=== PATIENT | male | born 1950 | race Caucasian/White ===

== ENCOUNTER 2019-11-15 10:08 | Outpatient (CLI) | payer MEDICARE, OTHER, SELFPAY ==
--- NOTE | ~2019-11-15 | XR_ITS ---
EXAMINATION: HAND-GÓMEZ ARTHRITIS 3+VIEWS DATE: 11/15/2019 10:34 INDICATION: Right hand pain TECHNIQUE: Posteroanterior, lateral, and oblique views of the left and of the right hands as well as a ballcatchers view of both hands were obtained. COMPARISON: Left hand radiographs dated 11/09/2018 FINDINGS: Nondisplaced chronic nonunited fracture across the base of the left ulnar styloid process. Cystic guillermo nge within sclerotic margins in the underlying distal ulna. Alignment is normal at the bilateral hand s and wrists. No other fractures identified. Mild polyarticular osteoarthritis characterized by nonun iform joint space narrowing and small marginal osteophytes with relatively symmetric distribution at the radial aspect of the bilateral carpi, at multiple metacarpophalangeal joints with radial and righ t-sided predominance and at multiple interphalangeal joints again with distal predominance. Additiona l likely lucency likely related to degenerative subchondral cyst with thin sclerotic margins and with out cortical erosion at the radial base of the right second middle phalanx. No erosions to suggest an inflammatory arthritis. 4 mm thin wire-like metallic foreign body in the soft tissues at the palmar/ radial aspect of the left second proximal phalanx. IMPRESSION: 1. Mild polyarticular osteoarthritis with typical distribution at the bilateral hands. 2. Unchanged nondisplaced chronic nonunited fracture of the left ulnar styloid process with underlyin g degenerative cystic change centered near the ulnar fovea which may be related to associated injury to the retracted fibrocartilage complex. Reviewed, dictated and finalized at location B. IMPRESSION: 1. Mild polyarticular osteoarthritis with typical distribution at the bilateral hands. 2. Unchanged nondisplaced chronic nonunited fracture of the left ulnar styloid process with underlying degenerative cystic change centered near the ulnar fove a which may be related to associated injury to the retracted fibrocartilage com plex.
== END 2019-11-15 10:09 | disposition home or self-care (01) ==
PROVIDERS: PCP Family Medicine; Visit Provider Physician Assistant Medical
DX: M19.042 Primary osteoarthritis, left hand (principal); M19.041 Primary osteoarthritis, right hand; S52.615A Nondisplaced fracture of left ulna styloid process, initial encounter for closed fracture; X58.XXXA Exposure to other specified factors, initial encounter
CPT/HCPCS: 73130

== ENCOUNTER 2020-02-10 08:35 | Outpatient (CLI) | payer MEDICARE, OTHER, SELFPAY ==
--- NOTE | ~2020-02-10 | NM_ITS ---
EXAMINATION: NM saturnino stress w perfusion DATE: 02/10/2020 14:08 INDICATION: Chest pain. TECHNIQUE: Rest images were obtained following intravenous administration of 9.6 mCi Tc99m tetrofosmi n (Myoview). The patient was infused intravenously with Lexiscan (regadenoson). Then, 28.3 mCi Tc99m tetrofosmin (Myoview) was administered intravenously, and stress images were obtained. Data was recon structed into short axis and horizontal and vertical long axis SPECT images. Gated SPECT images were also obtained. COMPARISON: None. FINDINGS: There is no definite reversible or fixed perfusion abnormality to suggest ischemia or infar ction. There is no segmental wall motion abnormality. Left ventricular ejection fraction measures 6 8%. IMPRESSION: 1. No definite ischemia or infarct. 2. Normal left ventricular ejection fraction measuring 68%. Reviewed, dictated and finalized at location A. OR INTERACTION DESIGNER
--- NOTE | 2020-02-10 08:56 | EST_ITS ---
Patient Info Name: Carlos Mckay Age: 69 years : 1950 Gender: Male Ht: 67 in Wt: 270 lbs BSA: 2.47 m2 Exam Date: 02/10/2020 10:56 AM Exam Location: [facility] Stress Patient Status: Outpatient Admit Date: 02/10/2020 Staff Ordering Physician: Vicki Frederick Attending Provider: Vicki Frederick Exercise Technologist: Chantel Kaba RDCS Exercise Physician: James Love DO Exam Type: CA stress saturnino w NM Study Info Indications R07.9 - Chest pain, unspecified A regadenoson stress test was performed. Summary 1. 1. Negative lexiscan stress test for ischemic ST changes by ECG criteria. 2. 2. Baseline hypertension. 3. 3. Nuclear scan to follow and will be reported separately. Please correlate with it. 4. 4. Patient informed of the above results. Protocol: Lexiscan Stress ECG Details Stage: REST Duration (min): 7 min : 43 sec HR (bpm): 77 SBP (mmHg): 161 DBP (mmHg): 79 Stage: REST Duration (min): 25 min : 33 sec HR (bpm): 79 SBP (mmHg): 161 DBP (mmHg): 79 Stage: STAGE 1 Duration (min): 1 min : 0 sec HR (bpm): 81 SBP (mmHg): 161 DBP (mmHg): 79 Stage: RECOVERY Duration (min): 1 min : 0 sec HR (bpm): 98 SBP (mmHg): 120 DBP (mmHg): 62 Stage: RECOVERY Duration (min): 2 min : 0 sec HR (bpm): 95 SBP (mmHg): 120 DBP (mmHg): 62 Stage: RECOVERY Duration (min): 3 min : 0 sec HR (bpm): 82 SBP (mmHg): 162 DBP (mmHg): 74 Stage: RECOVERY Duration (min): 3 min : 3 sec HR (bpm): 82 SBP (mmHg): 162 DBP (mmHg): 74 Rest HR: 79 bpm Peak HR: 98 bpm Rest Sys BP: 161 mmHg Peak Sys BP: 162 mmHg Max Pred HR: 153 bpm % Max Pred HR: 64 % Target HR: 130 bpm Max RPP: 15,876 bpm*mmHg Termination Reason: Completed protocol Cardiac Symptoms: Abdominal discomfort Total Time: 1 min : 0 sec Rest Keyes BP: 79 mmHg Peak Keyes BP: 74 mmHg Total Dose: 0.4 mg Resting ECG Sinus rhythm. Stress ECG No ST changes. Arrhythmias None. Report Signatures
--- NOTE | 2020-02-10 08:56 | ECHO_ITS ---
Patient Info Name: Carlos Mckay Age: 69 years : 1950 Gender: Male Ht: 67 in Wt: 270 lbs BSA: 2.47 m2 HR: 80 bpm BP: 179 / 94 mmHg Heart Rhythm: Sinus Rhythm Technical Quality: Good Exam Date: 02/10/2020 9:15 AM Exam Location: [facility] Patient Status: Outpatient Admit Date: 02/10/2020 Staff Ordering Physician: Vicki Frederick PAC Cold Rolling Supervisor: Romaine Poole RDCS Attending Provider: Vicki Frederick PAC Referring Physician: Yoly JONES; Exam Type: CA echo doppler color flow Study Info Indications R07.9 - Chest pain, unspecified Complete two-dimensional, color flow and Doppler transthoracic echocardiogram is performed. History/Risk Factors Chest pain and HTN. Summary 1. Complete two-dimensional, color flow and Doppler transthoracic echocardiogram is performed. 2. Left ventricular chamber dimension is normal. 3. Left ventricular systolic function is normal, estimated at 60-65%. 4. There is mildly increased left ventricular wall thickness. 5. The left ventricular diastolic function is grade I diastolic dysfunction. 6. E/e' 14 is mildly elevated. 7. No pulmonary hypertension, estimated pulmonary arterial systolic pressure is 33 mmHg. Left Ventricle E/e' 14 is mildly elevated. Left ventricular chamber dimension is normal. Left ventricular systolic function is normal, estimated at 60-65%. There is mildly increased left ventricular wall thickness. The left ventricular diastolic function is grade I diastolic dysfunction. Right Ventricle Right ventricular chamber dimension is normal. Right ventricular systolic function is normal. Left Atria Left atrial chamber dimension is normal. Right Atria Right atrial chamber dimension is normal. Aortic Valve The aortic valve is trileaflet. There is no aortic valve stenosis. There is no aortic valve regurgitation. Pulmonic Valve There is no pulmonic regurgitation. Mitral Valve There is no mitral valve stenosis. There is no mitral valve regurgitation. Tricuspid Valve There is no tricuspid valve regurgitation. No pulmonary hypertension, estimated pulmonary arterial systolic pressure is 33 mmHg. Pericardium/Pleural There is no pericardial effusion. Inferior Vena Cava Normal inferior vena cava with >50% collapse upon inspiration consistent with normal right atrial pressure, 5 mmHg. Aorta The aortic root size at the sinus of Valsalva is normal. Left Ventricular Outflow Tract Name Value Normal LVOT 2D LVOT Diameter 2.0 cm LVOT Doppler LVOT Peak Gradient 4 mmHg LVOT Mean Gradient 2 mmHg LVOT VTI 22 cm LVOT VTI/AV VTI Ratio 0.9 LVOT Stroke Volume 73 ml LVOT CO 5.0 l/min LVOT CI 2.0 l/min/m2 Mitral Valve Name Value Normal
== END 2020-02-10 08:36 | disposition home or self-care (01) ==
PROVIDERS: PCP Family Medicine; Visit Provider Physician Assistant Medical
DX: R07.89 Other chest pain (principal); R06.02 Shortness of breath; I51.9 Heart disease, unspecified
CPT/HCPCS: 78452; 93017; 93306; A9502; J2785

== ENCOUNTER 2020-03-04 06:35 | Emergency (ER) | payer MEDICARE, OTHER, SELFPAY ==
--- NOTE | ~2020-03-04 | CT_ITS ---
EXAMINATION: CT abdomen pelvis w con INDICATION: Right upper quadrant pain TECHNIQUE: Computed tomographic images of the abdomen and pelvis were obtained after the administrati on of 100 cc of Omnipaque 350 intravenous contrast. The dose-length product (DLP) was 1447.65 mGy-cm. Automated exposure control and iterative reconstruction technique were employed. COMPARISON: 02/11/2009 FINDINGS: Minimal dependent atelectasis is present in the lung bases. The heart size is normal. There is an 8 mm cyst in liver segment I. The spleen, pancreas, gallbladder, and adrenal glands are normal . Punctate calcifications of the head of the pancreas are consistent with chronic pancreatitis. The k idneys are unremarkable. There is calcified atherosclerosis of the aorta and many of the other arteri es. No pathologically enlarged abdominal or pelvic lymph nodes are identified. There is no free intra peritoneal gas or evidence of bowel obstruction. The appendix is normal. There is a small volume of p elvic ascites. There is mild lumbar spondylosis. There is a small fat-containing umbilical hernia. IMPRESSION: 1. No CT correlate for the patient's symptoms. Small volume of pelvic ascites of unclear etiology. Reviewed, dictated and finalized at location A. TY DIRECTOR OF FINANCE IMPRESSION: 1. No CT correlate for the patient's symptoms. Small volume of pelvic ascites o f unclear etiology.
[2020-03-04 06:41] VITALS: BP 162/87; PULSE 83; RESP 18; TEMP 36.3; O2SAT 100
[2020-03-04 06:55] LABS: Basophils Absolute Auto 0.1 K/mm3 (0.0-0.1); Basophils Percent Auto 0.9 % (0.2-1.2); Eosinophils Absolute Auto 0.2 K/mm3 (0-0.3); Hematocrit 43.2 % (42.0-52.0); Hemoglobin 14.5 g/dL (14.0-18.0); Immature Granulocyte Absolute 0.04 K/mm3 (0.00-0.031); Immature Granulocyte Percent A 0.5 % (0-0.5); Lymphocytes Absolute Auto 1.18 K/mm3 (0.9-3.2); Lymphocytes Percent Auto 15.8 % (18.3-44.2); Mean Corpuscular HGB Conc 33.6 g/dl (32-36); Mean Corpuscular Hemoglobin 27.7 pg (26-34); Mean Corpuscular Volume 82.4 fl (80-100); Mean Platelet Volume 10.6 fl (7.4-10.4); Monocytes Absolute Auto 0.6 K/mm3 (0.1-0.6); Monocytes Percent Auto 8.1 % (2.6-8.5); Neutrophils Absolute Auto 5.3 K/mm3 (1.3-6.7); Neutrophils Percent Auto 71.7 % (45.5-73.1); Platelet Count Result 266 k/mm3 (150-375); Red Blood Count 5.24 M/mm3 (4.6-6.20); Red Cell Distribution Width 12.1 % (11.5-14.5); White Blood Count 7.5 K/mm3 (4.5-10.0)
[2020-03-04 07:06] LABS: Alanine Aminotransferase 34 U/L (4-50); Albumin Level 4.2 g/dL (3.5-5.1); Alkaline Phosphatase 65 U/L (38-126); Anion Gap 7 mmol/L (8-16); Aspartate Amino Transferase 31 U/L (17-59); Bilirubin,Total 0.7 mg/dL (0.2-1.3); Blood Urea Nitrogen 22 mg/dL (9-20); Calcium 9.4 mg/dL (8.4-10.2); Carbon Dioxide 30 mmol/L (22-30); Chloride 99 mmol/L (98-107); Estimated CRCL calculation 63 ml/min; Estimated Glomerular Filt Rate 55; Glucose 207 mg/dL (75-110); Lipase 263 U/L (23-300); Potassium 4.4 mmol/L (3.4-5.0); Sodium 136 mmol/L (137-145)
--- NOTE | 2020-03-04 07:29 | ED.ABDPAIN ---
HPI - Abdominal Pain General Chief Complaint: Abdominal Pain Stated Complaint: Gallbladder attack Time Seen by Provider: 03/04/20 07:20 Source: patient Mode of arrival: ambulatory Limitations: no limitations History of Present Illness HPI narrative: 69 years old white male presents with diffuse abdominal pain mainly right upper quadrant, get worse after eating started 5 days ago. Patient denies any fever, chills, vomiting, diarrhea, constipation, history of abdominal surgery, exposure to anybody known having COVID-19. History of hypertension, diabetes patient on baby aspirin Patient reports taking 80 mg of Protonix daily in the last few days to improve his feeling. Also he been taking Pepcid at the same time. Related Data Home Medications Medication Instructions Recorded Confirmed aspirin 81 mg tablet,delayed 81 mg PO DAILY 04/18/19 01/15/20 release doxycycline hyclate 100 mg capsule 100 mg PO BID cap 04/18/19 01/15/20 gefitinib 250 mg tablet 250 mg PO DAILY 04/18/19 01/15/20 levothyroxine 300 mcg tablet 300 mcg PO DAILY 04/18/19 01/15/20 lisinopril 10 mg tablet 10 mg PO DAILY 02/25/20 Allergies Allergy/AdvReac Type Severity Reaction Status Date / Time No Known Allergies Allergy Unknown Verified 02/25/20 08:41 Review of Systems Review of Systems: Narrative: CONSTITUTIONAL: Denies fever, chills, or sweats. EYES: Denies visual changes, redness, or discharge. ENT: Denies rhinorrhea, congestion, sore throat, or otalgia. CARDIOVASCULAR: Denies chest pain, palpitations, or edema. RESPIRATORY: Denies cough or dyspnea. GASTROINTESTINAL: Denies abdominal pain, nausea, vomiting, or diarrhea. GENITOURINARY: Denies dysuria or hematuria. SKIN: Denies rash or itching. MUSCULOSKELETAL: Denies back pain, joint pain, or myalgia. NEUROLOGIC: Denies headache, numbness, or weakness. PSYCHIATRIC: Denies anxiety or depression. [facility] Past Medical History Medical History Morbid obesity Family History Family History Mother Carcinoma of colon Family history of diabetes mellitus in first degree relative Family history of coronary artery disease Grandparent Diabetes mellitus Social History Social History Smoking status: Former smoker (quit 30 years ago after 15 pack years) Alcohol intake: never Exam Narrative: Exam Narrative: General appearance: Well-developed, well-nourished Skin: Normal color Head: Normocephalic, nontraumatic Eyes: Clear conjunctiva ENT: Oropharynx normal, ears normal, nose normal Neck: Supple, nontender Chest and respiratory: Airway patent, no respiratory distress, no accessory muscle use Heart: Regular rate/rhythm Abdomen: Soft, mild tenderness right upper quadrant, no guarding or rebound, no organomegaly, quiet bowel sounds Vascular: Normal peripheral pulses, normal capillary refill. Musculoskeletal: Normal range of motion, nontender back Neurologic: Alert and oriented ?3, MAGNETIC TESTER is normal as tested, no gross motor deficit Course Course Emergency Course: Stable Vital Signs Vital signs: Vital Signs Temperature 36.3 C L 03/04/20 06:41 Pulse Rate 83 03/04/20 06:41 Respiratory Rate 18 03/04/20 06:41 Blood Pressure 162/87 H 03/04/20 06:41 Pulse Oximetry 100 03/04/20 06:41 Temperature 36.3 C L 03/04/20 06:41 Pulse Rate 76 03/04/20 08:10 Respiratory Rate 18 03/04/20 06:41 Blood Pressure 149/87 H 03/04/20 08:10 Pulse Oximetry 99 03/04/20 08:10 MDM - Abdominal Pain MDM Narrative Medical decision making narrative: Patient presents w
[2020-03-04 08:10] VITALS: BP 149/87; PULSE 76; O2SAT 99
[2020-03-04] MEDS: SODIUM CHLORIDE 0.9% IV 1,000 ML 999 ML IV CONT (08:12)
[2020-03-04] MEDS: METOCLOPRAMIDE HCL INJ 10 MG/2 ML VIAL IV PUSH (09:32)
== END 2020-03-04 09:40 | disposition home or self-care (01) ==
PROVIDERS: Emergency Medicine; Emergency Provider Emergency Medicine; PCP Family Medicine
DX: R10.11 Right upper quadrant pain (principal); E66.01 Morbid (severe) obesity due to excess calories; Z68.41 Body mass index [BMI] 40.0-44.9, adult; Z87.891 Personal history of nicotine dependence
CPT/HCPCS: 36415; 74177; 80053; 83690; 85025; 96361; 96374; 99284; J2765; J7030; Q9967

== ENCOUNTER 2020-03-10 00:23 | Observation (INO) | payer MEDICARE, OTHER, SELFPAY ==
[2020-03-10] VITALS (31 sets, daily range): BP systolic 100–149; BP diastolic 57–85; PULSE 66–91; RESP 12–23; TEMP 35.8–36.6; O2SAT 96–100; BMI 40.4
--- NOTE | ~2020-03-10 | CT_ITS ---
EXAMINATION: CT abdomen pelvis w con EXAM DATE: 03/10/2020 01:08 INDICATION: Right-sided abdominal pain, radiating to back at times. TECHNIQUE: Spiral CT of the abdomen and pelvis was performed following intravenous injection of 100 m L Omnipaque 350. Axial, coronal and sagittal images were reviewed. The dose-length product (DLP) fo r this examination was 1565.47 mGy-cm. The exposure was tailored according to patient size (auto mA exposure control), and iterative reconstruction (ASIR) was used as additional dose reduction techniqu e. Comparison is made to prior examination from 03/04/2010. FINDINGS: There is mildly indistinct fat in region of the pancreatic head, possible acute pancreatiti s. Please correlate with amylase and lipase levels. Several pancreatic uncinate calcifications, could indicate chronic pancreatitis. There is hepatic steatosis without suspicious focal lesion identified . Spleen, adrenal glands are unremarkable. Gallbladder is unremarkable. No biliary obstruction. Po rtal and splenic veins are patent. Kidneys enhance symmetrically. There is no hydronephrosis. Ther e is mild to moderate prostatomegaly. The bladder is unremarkable. There is no retroperitoneal or p elvic lymphadenopathy. There is mild to moderate scattered arteriosclerotic disease. The appendix is normal. The stomach and small bowel are unremarkable. There is expected amount of c olonic stool. No free intraperitoneal gas. The heart is normal in size. There are no pericardial or pleural effusions. The lung bases are unremarkable. There are no osteoblastic or osteolytic les ions identified. Small umbilical fat-containing hernia. IMPRESSION: 1. Possible acute uncomplicated pancreatitis. 2. Hepatic steatosis. 3. Prostatomegaly. Reviewed, dictated and finalized at location D. [employer]PAR[employer]INKL[employer] INSPECTOR
--- NOTE | ~2020-03-10 | US_ITS ---
EXAMINATION: US right upper quadrant EXAM DATE: 03/10/2020 08:28 INDICATION: Postprandial epigastric pain, gallbladder. TECHNIQUE: Multiple grayscale and Doppler images of the abdomen right upper quadrant were obtained (b y a technologist who performed the scan) and subsequently reviewed. Comparison is made to prior exami nation from 05/27/2013. FINDINGS: The pancreatic head and body are normal in appearance. The pancreatic tail is not visualized. There is echogenic liver parenchyma, hepatic steatosis. There are no focal liver lesions identified. Th ere is no evidence of intrahepatic biliary duct dilation. Portal venous flow was seen in the hepatop edal, normal direction and has normal Doppler waveform. No right-sided hydronephrosis. Common bile duct measures 4 mm, which is normal. The gallbladder wall is normal in thickness, with ex pected amount of distention. No sonographic evidence of pericholecystic fluid. There is no cholelit hiases. Technologist performing exam reports patient did not demonstrate sonographic Lee's sign. Please note that this sign is less reliable in patients who have received pain medication. IMPRESSION: 1. Hepatic steatosis. Reviewed, dictated and finalized at location D. STRY ADVISER IMPRESSION: 1. Hepatic steatosis.
--- NOTE | 2020-03-10 00:33 | ECG_ITS ---
Measurements Intervals Williamson Rate: 82 P: 13 WV: 133 QRS: -20 QRSD: 97 T: 28 QT: 362 QTc: 423 Interpretive Statements SINUS RHYTHM DELAYED PRECORDIAL R/S TRANSITION BASELINE ARTIFACT- I, II, AVR, V1 BORDERLINE ECG Electronically Signed On 03-10-2020 7:29:19 TANK SETTER by James Love D.O.
[2020-03-10] MEDS: ONDANSETRON INJ 4 MG/2 ML VIAL IV PUSH (00:51)
[2020-03-10] MEDS: MORPHINE SULFATE (*CRX) 4 MG/ML INJ IV PUSH (00:51)
[2020-03-10 00:53] LABS: Basophils Absolute Auto 0.1 K/mm3 (0.0-0.1); Basophils Percent Auto 0.9 % (0.2-1.2); Eosinophils Absolute Auto 0.3 K/mm3 (0-0.3); Eosinophils Percent Auto 4.2 % (0-4.4); Hematocrit 44.6 % (42.0-52.0); Hemoglobin 14.9 g/dL (14.0-18.0); Immature Granulocyte Absolute 0.04 K/mm3 (0.00-0.031); Immature Granulocyte Percent A 0.5 % (0-0.5); Lymphocytes Absolute Auto 1.31 K/mm3 (0.9-3.2); Lymphocytes Percent Auto 16.2 % (18.3-44.2); Mean Corpuscular HGB Conc 33.4 g/dl (32-36); Mean Corpuscular Volume 83.8 fl (80-100); Mean Platelet Volume 10.6 fl (7.4-10.4); Monocytes Absolute Auto 0.8 K/mm3 (0.1-0.6); Monocytes Percent Auto 9.3 % (2.6-8.5); Neutrophils Absolute Auto 5.6 K/mm3 (1.3-6.7); Neutrophils Percent Auto 68.9 % (45.5-73.1); Platelet Count Result 272 k/mm3 (150-375); Red Blood Count 5.32 M/mm3 (4.6-6.20); Red Cell Distribution Width 12.4 % (11.5-14.5); White Blood Count 8.1 K/mm3 (4.5-10.0)
[2020-03-10 01:05] LABS: Alanine Aminotransferase 28 U/L (4-50); Albumin Level 4.4 g/dL (3.5-5.1); Alkaline Phosphatase 71 U/L (38-126); Anion Gap 13 mmol/L (8-16); Aspartate Amino Transferase 25 U/L (17-59); Bilirubin,Total 0.6 mg/dL (0.2-1.3); Blood Urea Nitrogen 19 mg/dL (9-20); Calcium 9.4 mg/dL (8.4-10.2); Carbon Dioxide 27 mmol/L (22-30); Chloride 96 mmol/L (98-107); Estimated CRCL calculation 58 ml/min; Estimated Glomerular Filt Rate 51; Glucose 214 mg/dL (75-110); Lactic Acid Reflex 1.6 mmol/L (0.7-2.1); Lipase 496 U/L (23-300); Sodium 136 mmol/L (137-145)
[2020-03-10 01:16] LABS: Troponin I < 0.012 ng/mL (0.000-0.034)
--- NOTE | 2020-03-10 02:10 | ED.GENADULT ---
HPI - General Adult General Chief complaint: Abdominal Pain Stated complaint: abd pain Time Seen by Provider: 03/10/20 00:36 History of Present Illness HPI narrative: Patient is a 69-year-old gentleman who presents the emergency department with chief complaint of abdominal pain. Patient states been going on for 1 to 2 weeks and was seen in the emergency department had a CT scan and laboratory studies at that time that showed no acute abnormalities. Patient states that his pain was improved with some [place] that he took at home been trying to eat a bland diet but has not really been eating much at home. Patient states the pain got worse tonight is worse in the epigastric region and radiates to his back. Related Data Home Medications Medication Instructions Recorded Confirmed aspirin 81 mg tablet,delayed 81 mg PO DAILY 04/18/19 01/15/20 release doxycycline hyclate 100 mg capsule 100 mg PO BID cap 04/18/19 01/15/20 gefitinib 250 mg tablet 250 mg PO DAILY 04/18/19 01/15/20 levothyroxine 300 mcg tablet 300 mcg PO DAILY 04/18/19 01/15/20 lisinopril 10 mg tablet 10 mg PO DAILY 02/25/20 Allergies Allergy/AdvReac Type Severity Reaction Status Date / Time No Known Allergies Allergy Unknown Verified 03/10/20 00:25 Review of Systems Review of Systems: Narrative: A 10 system review of systems was completed on the patient and is negative except for what is stated in the HPI. Nursing and ancillary documentation was reviewed. [facility] Past Medical History Medical History Morbid obesity Family History Family History Mother Carcinoma of colon Family history of diabetes mellitus in first degree relative Family history of coronary artery disease Grandparent Diabetes mellitus Social History Social History Smoking status: Former smoker (quit 30 years ago after 15 pack years) Alcohol intake: never Gender identity (if verbalized by the patient): Male Exam Narrative: Exam Narrative: GENERAL: Well-appearing, well-nourished, and in no acute distress. HEAD: Normocephalic, atraumatic. EYES: PERRLA and EOMI. ENT: Nares clear, no rhinorrhea or epistaxis. Mucous membranes moist. NECK: Supple. CHEST: Clear to auscultation. No respiratory distress. HEART: Regular rate and rhythm. No murmur heard. Normal peripheral pulses. ABDOMEN: Soft, tender to palpation in the epigastric region, nondistended, normal active bowel sounds. EXTREMITIES: Normal range of motion. No edema. SKIN: Warm, dry, no rash. NEURO: No focal deficits. Alert and oriented x3. PSYCH: Normal mood and affect. Course Course Emergency Course: Patient's lipase was mildly elevated. CT scan did not show evidence of acute pancreatitis but the patient is having significant pain Case was discussed with the hospitalist due to the patient's continued pain the patient will be admitted to the hospitalist service for observation Vital Signs Vital signs: Vital Signs Temperature 35.8 C L 03/10/20 00:27 Pulse Rate 85 03/10/20 00:27 Respiratory Rate 20 03/10/20 00:27 Blood Pressure 105/58 L 03/10/20 00:27 Pulse Oximetry 100 03/10/20 00:27 Temperature 35.8 C L 03/10/20 00:27 Pulse Rate 91 03/10/20 00:40 Respiratory Rate 14 03/10/20 00:40 Blood Pressure 141/62 H 03/10/20 00:40 Pulse Oximetry 100 03/10/20 00:40 Medical Decision Making Vital Signs Vital Signs: Vital Signs Temperature 35.8 C L 03/10/20 00:27 Pulse Rate 85 03/10/20 00:27 Respiratory Rate 20 03/10/20 00:27 Blood Pressure 105/58 L 03/10/20 00:27 Pulse Oximetry 100 03/10/20 00:27 Temperature 35.8 C L 03/10/20 00:27 Pulse Rate 91 03/10/20 00:40 Respiratory Rate 14 03/10/20 00:40 Blood Pressure 141/62 H 03/10/20 00:40 Pulse Oximetry 100 03/10/20 00:40
--- NOTE | 2020-03-10 02:52 | PM.IMHP ---
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 History by patient and bedside in the ED. His symptom onset was 02/29/2020 epigastric pain after meals which he thought was his gallbladder. He was evaluated in the ED on 03/04/2020 complaints of right upper quadrant abdominal pain. He is trying to manage with Protonix and Pepcid outpatient. Patient had abdominal CT which showed small volume pelvic ascites otherwise negative for acute pathology. Labs are stable. Patient was discharged home. Recently has had some medication changes lisinopril 10 mg which is new as well as increasing his metformin 1500 mg daily recently. He was diagnosed in 2003 with tonsil cancer he had tonsillectomy as well as resection of his thyroid leading him to be on Synthroid, resection of the right lower lobe of his lung for metastatic lesion. They found metastatic disease on his diaphragm as well and was told he has stage IV terminal disease. He then was put on Iressa which has kept him in remission. His only complications from Iressa is a TIA and acne on his scalp which he treats with doxycycline. In the ED: Vitals are stable. Labs stable. Lipase is slightly elevated at 496. CT abdomen did not have any significant findings. EKG showed normal sinus rhythm rate 82. With patient's persistent nausea and abdominal pain, he is being admitted for observation for is abdominal pain possibly early pancreatitis. Review of Systems Review of Systems: Narrative: Constitutional: No Fever, No Chills, No Night Sweats, No Fatigue, No Malaise ENT/Mouth: No Hearing Changes, No Ear Pain, No Nasal Congestion, No Sinus Pain, No Hoarseness, No sore throat, No Rhinorrhea, No Swallowing Difficulty Eyes: No Eye Pain, No Redness, No Vision Changes Cardiovascular: No Chest Pain, No Palpitations, No Dyspnea on Exertion, No Orthopnea, No Claudication, No Edema Respiratory: No Cough, No Sputum, No Wheezing, No Shortness of Breath Gastrointestinal: No Nausea, No Vomiting, No Diarrhea, No Constipation, No Heartburn, No Hematochezia, No Melena. Endorses postprandial abdominal pain. Genitourinary: No Dysuria, No Urinary Frequency, No Hematuria, No Urinary Incontinence, No Urgency Musculoskeletal: No Arthralgias, No Myalgias, No Joint Swelling, No Joint Stiffness, No Back Pain Skin: No Skin Lesions, No Pruritis, No Hair Changes Neuro: No Weakness, No Numbness, No Paresthesias, No Loss of Consciousness, No Headache. He endorses dizziness and a fall which he attributes to being dehydrated. 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 History Family History Mother Carcinoma of colon Family history of diabetes mellitus in first degree relative Family history of coronary artery disease Grandparent Diabetes mellitus Social History Social History (Updated 03/10/20
[2020-03-10 04:08] LABS: Hemoglobin A1C 8.9 % (<5.7)
--- NOTE | 2020-03-10 04:17 | ADMGEN ---
This patient, Carlos Mckay, was admitted to Medical Room 342-01. Patient/family oriented to hospital policies and general routines including ID bracelet, bed and alarms, visiting hours, pain management, procedures, bathroom and other care routines, personal items, smoking policy, room service/diet, and visiting hours. Information on how to activate the Rapid Response Team has been discussed. Patient/Family are encouraged to report perceived risks to care and to ask questions if they do not understand what they are told or what they should do.
[2020-03-10] MEDS: MORPHINE SULFATE (*CRX) 2 MG/ML INJ IV PUSH (04:27)
[2020-03-10] MEDS: SODIUM CHLORIDE 0.9% IV 1,000 ML 100 ML IV CONT (04:28)
[2020-03-10 04:47] LABS: Glucose Point of Care 168 (65-105)
[2020-03-10] MEDS: lisinopriL 10 MG TABLET 30 MG PO (08:54)
[2020-03-10] MEDS: ENOXAPARIN 40 MG/0.4 ML SYRINGE SUB-Q (08:54)
[2020-03-10] MEDS: DOXYCYCLINE HYCLATE 100 MG TABLET PO ×2 (08:54→16:32)
[2020-03-10] MEDS: ASPIRIN 81 MG ENTERIC TABLET PO (08:54)
[2020-03-10] MEDS: METOPROLOL SUCCINATE EXT REL 25 MG TABCR PO (08:55)
[2020-03-10] MEDS: LEVOTHYROXINE SODIUM 150 MCG TABLET 300 MCG PO (08:57)
--- NOTE | 2020-03-10 09:37 | PM.IMPN ---
Progress Note: A&P Assessment and Plan (1) Abdominal pain, acute, epigastric: Code(s): R10.13 - Epigastric pain Status: Acute Assessment and Plan: Epigastric pain that has been persistent, sometimes postprandial but other times pain is constant; burning pain. Lipase mildly elevated at 496, but no evidence of pancreatitis on imaging. Possibly PUD vs may be early idiopathic pancreatitis. Iressa can cause pancreatitis as well, although patient has been on this medication since 2003. US of gallbladder showed hepatic steatosis; otherwise unremarkable. Will advance diet slowly today; will hold on IV fluids Will consult GI for further input; appreciate recommendations Will hold Iressa for now nausea: Zofran prn pain control: Morphine for severe pain prn; encouraged PO norco or Tylenol if tolerable Additional Plan # other chronic conditions- Will start home medications if he tolerates PO hypertension: Lisinopril; BP 110s sys this morning type 2 diabetes: Low-dose sliding scale insulin, holding home metformin although I do not see this on his med list. Accuchecks ACHS, hypoglycemia protocol, correctional insulin, diabetic diet once tolerating diet. 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 Patient states he feels somewhat better today but still needing IV morphine. He is will to try to advance his diet today. He notes that he has an appointment with Dr. Payne (GI) sometime in the coming weeks, but has yet to see any GI specialist in the office. He denies any other associated symptoms such as n/v, melena, brbpr. He does not his stool has become harder the last couple of days, as they are usually softer since starting his Iressa since 2003. Still passing gas, last BM yesterday; nonbloody. Pain is now around 5/10 but got down to 3/10 with IV morphine. No other complaints. Denies f/c/s, headaches, dizziness, lightheadedness, cp/palpitations, sob/cough, n/v, dysuria, hematuria, cloudy urine, calf pain/swelling. Review of Systems Review of Systems: All systems reviewed & are unremarkable except as noted in HPI and below Exam Narrative: Exam Narrative: General: Patient in semi-landry's position in bed in no acute distress. HEENT: Normocephalic, EOMI, oral mucosa moist. Cardiovascular: Rate and rhythm are regular. No notable murmur, rub, or gallop. Respiratory: crackles in b/l lung bases. Non-labored breathing. Abdomen: Soft, mild ttp in epigastric area, Lee's sign not appreciated, non-distended, bowel sounds present. Extremities: Peripheral pulses intact. No edema. Neuro: No focal neurological deficits. Speech is clear. Objective Data Vital Signs Vital Signs: Last Vital Signs Temp 97.8 F 03/10/20 06:00 Pulse 70 03/10/20 08:55 Resp 16 03/10/20 06:00 BP 115/68 03/10/20 06:00 Pulse Ox 99 03/10/20 06:00 Meds/Results Medications: Active Medications Generic Name Dose Route Start Last Admin Trade Name Freq PRN Reason Stop Dose Admin Acetaminophen 650 mg 03/10/20 08:44 Acetaminophen 325 Mg Tablet PO Q6H PRN Mild Pain (1-3) or Fever Hydrocodone Bitart/Acetaminophen 1 tab 03/10/20 08:44 Hydrocodone/Acetaminophen (*Crx) 5-325 Mg Tablet PO Q6H PRN Pain Rated 4-6 Aspirin 81 mg 03/10/20 09:00 03/10/20 08:54 Aspirin 81 Mg Enteric Tablet PO 81 mg DAILY ALEXUS Administration Dextrose 12.5 gm 03/10/20 03:12 Dextrose 50% 25 Gm/50 Ml Syringe IV P
[2020-03-10 12:15] LABS: Glucose Point of Care 142 (65-105)
[2020-03-10 16:37] LABS: Glucose Point of Care 110 (65-105)
[2020-03-10] MEDS: PANTOPRAZOLE SODIUM IV 40 MG VIAL IV PUSH (21:11)
[2020-03-10 21:27] LABS: Glucose Point of Care 125 (65-105)
[2020-03-11] MEDS: ACETAMINOPHEN 325 MG TABLET 650 MG PO (05:42)
[2020-03-11] MEDS: LEVOTHYROXINE SODIUM 150 MCG TABLET 300 MCG PO (05:42)
[2020-03-11 05:45] VITALS: BP 118/61; PULSE 71; RESP 17; TEMP 36.5; O2SAT 100
[2020-03-11 05:57] LABS: Basophils Absolute Auto 0.1 K/mm3 (0.0-0.1); Basophils Percent Auto 0.8 % (0.2-1.2); Eosinophils Absolute Auto 0.3 K/mm3 (0-0.3); Eosinophils Percent Auto 3.9 % (0-4.4); Hematocrit 39.9 % (42.0-52.0); Hemoglobin 13.2 g/dL (14.0-18.0); Immature Granulocyte Absolute 0.03 K/mm3 (0.00-0.031); Immature Granulocyte Percent A 0.5 % (0-0.5); Lymphocytes Absolute Auto 0.86 K/mm3 (0.9-3.2); Lymphocytes Percent Auto 13.3 % (18.3-44.2); Mean Corpuscular HGB Conc 33.1 g/dl (32-36); Mean Corpuscular Hemoglobin 27.7 pg (26-34); Mean Corpuscular Volume 83.8 fl (80-100); Mean Platelet Volume 10.7 fl (7.4-10.4); Monocytes Absolute Auto 0.6 K/mm3 (0.1-0.6); Monocytes Percent Auto 9.7 % (2.6-8.5); Neutrophils Absolute Auto 4.7 K/mm3 (1.3-6.7); Neutrophils Percent Auto 71.8 % (45.5-73.1); Platelet Count Result 216 k/mm3 (150-375); Red Blood Count 4.76 M/mm3 (4.6-6.20); Red Cell Distribution Width 12.3 % (11.5-14.5); White Blood Count 6.5 K/mm3 (4.5-10.0)
[2020-03-11 06:12] LABS: Alanine Aminotransferase 27 U/L (4-50); Albumin Level 3.7 g/dL (3.5-5.1); Alkaline Phosphatase 64 U/L (38-126); Anion Gap 8 mmol/L (8-16); Aspartate Amino Transferase 28 U/L (17-59); Bilirubin,Total 0.6 mg/dL (0.2-1.3); Blood Urea Nitrogen 23 mg/dL (9-20); Calcium 9.2 mg/dL (8.4-10.2); Carbon Dioxide 27 mmol/L (22-30); Chloride 100 mmol/L (98-107); Estimated CRCL calculation 56 ml/min; Estimated Glomerular Filt Rate 51; Glucose 143 mg/dL (75-110); Lipase 207 U/L (23-300); Magnesium 2.1 mg/dL (1.6-2.3); Potassium 5.1 mmol/L (3.4-5.0); Sodium 135 mmol/L (137-145)
[2020-03-11 08:06] LABS: Glucose Point of Care 163 (65-105)
[2020-03-11] MEDS: ASPIRIN 81 MG ENTERIC TABLET PO (08:34)
[2020-03-11] MEDS: DOXYCYCLINE HYCLATE 100 MG TABLET PO ×2 (08:34→17:51)
[2020-03-11] MEDS: ENOXAPARIN 40 MG/0.4 ML SYRINGE SUB-Q (08:34)
[2020-03-11] MEDS: lisinopriL 10 MG TABLET 30 MG PO (08:34)
[2020-03-11 08:35] VITALS: PULSE 70
[2020-03-11] MEDS: METOPROLOL SUCCINATE EXT REL 25 MG TABCR PO (08:35)
[2020-03-11] MEDS: PANTOPRAZOLE SODIUM IV 40 MG VIAL IV PUSH ×2 (08:35→21:30)
--- NOTE | 2020-03-11 09:12 | PM.IMPN ---
Progress Note: A&P Assessment and Plan (1) Abdominal pain, acute, epigastric: Code(s): R10.13 - Epigastric pain Status: Acute Assessment and Plan: Epigastric pain that has been persistent, sometimes postprandial but other times pain is constant; burning pain. Not associated with any particular food, (eg, fatty foods vs spicy, etc). Lipase WNL, no evidence of pancreatitis on imaging. Possibly PUD vs gastritis vs resolving idiopathic pancreatitis. Iressa can cause pancreatitis as well, although patient has been on this medication since 2003. US of gallbladder showed hepatic steatosis; otherwise unremarkable. Will continue with current diet; defer further advancement to GI Will consult GI for further input; appreciate recommendations Will hold Iressa for now, likely resume with caution on discharge Will hold metformin as well as this is a fairly new med and symptoms seemed to have started around the same time frame nausea: Zofran prn pain control: Morphine for severe pain prn; encouraged PO norco or Tylenol if tolerable Additional Plan # other chronic conditions- Will continue home medications if he continues to tolerate PO hypertension: Lisinopril; BP 110s sys this morning type 2 diabetes: Low-dose sliding scale insulin, holding home metformin although I do not see this on his med list. Accuchecks ACHS, hypoglycemia protocol, correctional insulin, diabetic diet once tolerating diet. 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 Patient states he feels much better today; pain is minimal today, but still present. No other associated symptoms such as n/v. He has tolerated CLD thus far. No other complaints. Denies f/c/s, headaches, dizziness, lightheadedness, cp/palpitations, sob/cough, n/v, dysuria, hematuria, cloudy urine, calf pain/swelling. Review of Systems Review of Systems: All systems reviewed & are unremarkable except as noted in HPI and below Exam Narrative: Exam Narrative: General: Patient sitting upright in chair in no acute distress HEENT: Normocephalic, EOMI, oral mucosa moist. Cardiovascular: Rate and rhythm are regular. No notable murmur, rub, or gallop. Respiratory: crackles in b/l lung bases. Non-labored breathing. Abdomen: Soft, NTTP abdomen, Lee's sign not appreciated, non-distended, bowel sounds present. Extremities: Peripheral pulses intact. No edema. Neuro: No focal neurological deficits. Speech is clear. Objective Data Vital Signs Vital Signs: Last Vital Signs Temp 97.7 F 03/11/20 05:45 Pulse 70 03/11/20 08:35 Resp 17 03/11/20 05:45 BP 118/61 03/11/20 05:45 Pulse Ox 100 03/11/20 05:45 Intake/Output Intake/Output: Intake & Output 03/08/20 03/09/20 03/10/20 03/11/20 23:59 23:59 23:59 23:59 Intake Total 2430 690 Output Total 275 Balance 2155 690 Meds/Results Medications: Active Medications Generic Name Dose Route Start Last Admin Trade Name Freq PRN Reason Stop Dose Admin Acetaminophen 650 mg 03/10/20 08:44 03/11/20 05:42 Acetaminophen 325 Mg Tablet PO 650 mg Q6H PRN Administration Mild Pain (1-3) or Fever Hydrocodone Bitart/Acetaminophen 1 tab 03/10/20 08:44 Hydrocodone/Acetaminophen (*Crx) 5-325 Mg Tablet PO Q6H PRN Pain Rated 4-6 Aspirin 81 mg 03/10/20 09:00 03/11/20 08:34 Aspirin 81 Mg Enteric Tablet PO 81 mg DAILY ALEXUS Administration Dextrose 12.5 g
[2020-03-11 12:41] LABS: Glucose Point of Care 127 (65-105)
[2020-03-11 14:00] VITALS: BP 117/63; PULSE 68; RESP 18; TEMP 36.5; O2SAT 100
--- NOTE | 2020-03-11 14:19 | WPDGICN ---
Assessment and Plan Additional Plan A. Epigastric pain/Decreased appetite/Abnormal Imaging-Digestive -concern for PUD vs. gastritis vs. biliary -on ASA 81 mg daily, No additional NSAIDs -No active GI bleed -pain is improving and tolerating diet -lipase mildly elevated on admit at 496 and trending to 207 -CT imaging showed possible early pancreatitis -tolerating diet at this time-advance diet as tolerated -Does not possible changes of chronic pancreatitis. Observe -Will plan EGD with Dr. Hansen 03/12/20. NPO after midnight -PPI BID, suggest adding carafate if pain worsens -If EGD unremarkable, consider HIDA scan -Care with NSAIDs and ASA B. Abnormal Imaging-Liver -Hepatic steatosis on imaging -LFTs are normal -Weight loss, diet, exercise -observe C. Family hx of colon cancer/Hx of colon polyps -Last colon 1-1.5 years ago at [place] The procedure of upper endoscopy, its indications, alternatives of barium studies and risks including perforation, bleeding, infection, reaction to medication as well as the possible need for blood or surgery were discussed with the patient. Patient voices understanding, agrees to proceed and provides informed consent. 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 Patient is seen at the request of the Hospitalist service to for abdominal pain. The patient?s primary care provider is Dr. Olmstead. He reports epigastric abdominal pain that is usually minutes after eating. He describes it as burning and pain . He could not describe the pain. He does report one episode of radiation into kidneys . He has had this pain since 02/29/20. he denies any radiation into chest or RUQ. He does report loss of appetite. He used Protonix and Pepcid outpatient with no improvement. He also tried hydrocodone which allows him to sleep through the night. Lipase was mildly elevated [place] [address] findings suggestive early acute pancreatitis and pancreatic calcifications of underlying chronic pancreatitis. Denies hx of pancreatitis or ETOH use. Abdominal pain is improving at this time. He denies NSAID or ASA use. He had EGD and Colonoscopy he reports at [place] 1-1.5 years ago. He says EGD was normal and he had polyps. His mother had colon cancer. New medications include Lisinopril, increase of Metformin, and metorprol. He has been on Irressa since 2003. Patient denies nausea or vomiting, trouble swallowing, bloating, weight loss, early satiety, heartburn, diarrhea or constipation, rectal bleeding or melena. Patient denies fever, jaundice, scleral icterus, dark urine, light stool, itching, hot or cold intolerance, chest pain, shortness of breath at rest, hematuria, dysuria, new cough or visual changes, easy bruising, tingling of the skin, bone pain or tremors. No history of endocarditis, rheumatic fever, dental prophylaxis, heart valve surgery, bleeding disorder or joint replacement. 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 History Family History (Updated 03/10/20 @ 04:41 by Selene Skinner RN) Mother Family history of diabetes mellitus in first degree relative Fam
[2020-03-11] MEDS: SUCRALFATE 1 GM TABLET PO (17:51)
[2020-03-11 18:13] LABS: Glucose Point of Care 175 (65-105)
[2020-03-11 19:55] VITALS: BP 123/82; PULSE 71; RESP 18; TEMP 36.6; O2SAT 100
[2020-03-11 23:59] LABS: Glucose Point of Care 114 (65-105)
[2020-03-12] VITALS (9 sets, daily range): BP systolic 84–164; BP diastolic 42–76; PULSE 65–92; RESP 15–18; TEMP 36–36.6; O2SAT 96–100
[2020-03-12] MEDS: LEVOTHYROXINE SODIUM 150 MCG TABLET 300 MCG PO (05:45)
[2020-03-12 06:55] LABS: Glucose Point of Care 148 (65-105)
[2020-03-12 06:58] LABS: Hematocrit 38.8 % (42.0-52.0); Hemoglobin 13.1 g/dL (14.0-18.0); Mean Corpuscular HGB Conc 33.8 g/dl (32-36); Mean Corpuscular Hemoglobin 27.8 pg (26-34); Mean Corpuscular Volume 82.4 fl (80-100); Mean Platelet Volume 10.9 fl (7.4-10.4); Platelet Count Result 237 k/mm3 (150-375); Red Blood Count 4.71 M/mm3 (4.6-6.20); Red Cell Distribution Width 12.2 % (11.5-14.5); White Blood Count 5.8 K/mm3 (4.5-10.0)
[2020-03-12 07:21] LABS: Anion Gap 9 mmol/L (8-16); Blood Urea Nitrogen 23 mg/dL (9-20); Calcium 9.1 mg/dL (8.4-10.2); Carbon Dioxide 26 mmol/L (22-30); Chloride 100 mmol/L (98-107); Estimated CRCL calculation 56 ml/min; Estimated Glomerular Filt Rate 51; Glucose 144 mg/dL (75-110); Magnesium 2.2 mg/dL (1.6-2.3); Potassium 4.3 mmol/L (3.4-5.0); Sodium 135 mmol/L (137-145)
--- NOTE | 2020-03-12 07:21 | WPDANESEPPF ---
Anes - Initial Pre Proc Eval Procedure: Operation Date: 03/12/20 10:00 Proposed Procedures p Esophagogastroduodenoscopy - Carlo Hansen MD Date/Time: 03/12/20 07:21 Surgeon: Blanco Palomo PA-C Pre Op Diagnosis: abdominal pain Patient Data Age: 69 Gender: M Height: 1.7 m Weight: 117.2 kg Last Vital Signs Temp 36.6 C 03/12/20 06:33 Pulse 68 03/12/20 06:33 Resp 18 03/12/20 06:33 BP 133/60 03/12/20 06:33 Pulse Ox 99 03/12/20 06:33 Allergies Allergy/AdvReac Type Severity Reaction Status Date / Time No Known Allergies Allergy Unknown Verified 03/10/20 04:39 Home Medications Medication Instructions Recorded Confirmed Type aspirin 81 mg tablet,delayed 81 mg PO DAILY 04/18/19 03/10/20 History release doxycycline hyclate 100 mg capsule 100 mg PO BID cap 04/18/19 03/10/20 History gefitinib 250 mg tablet 250 mg PO DAILY 04/18/19 03/10/20 History levothyroxine 300 mcg tablet 300 mcg PO DAILY 04/18/19 03/10/20 History blood sugar diagnostic #100 ea 02/11/20 03/10/20 Rx metoprolol succinate 25 mg 25 mg PO DAILY #30 tablet 02/11/20 03/10/20 Rx tablet,extended release 24 hr hydrocodone-acetaminophen 1 - 2 tablet PO Q4-5H PRN 03/10/20 03/10/20 History lisinopril 30 mg PO DAILY 03/10/20 03/10/20 History Laboratory Tests 03/11/20 03/11/20 03/11/20 08:02 12:38 17:54 WBC RBC Hgb Hct MCV MCH MCHC RDW Plt Count MPV Sodium Potassium Chloride Carbon Dioxide Anion Gap BUN Creatinine Estim Creat Clear Calc Estimated GFR Glucose POC Capillary Glucose 163 mg/dl H mg/dl 127 mg/dl H mg/dl 175 mg/dl H mg/dl (65-105) (65-105) (65-105) Calcium Magnesium 03/11/20 03/12/20 03/12/20 23:49 05:54 05:54 WBC 5.8 K/mm3 K/mm3 (4.5-10.0) RBC 4.71 M/mm3 M/mm3 (4.6-6.20) Hgb 13.1 g/dL L g/dL (14.0-18.0) Hct 38.8 % L % (42.0-52.0) MCV 82.4 fl fl (80-100) MCH 27.8 pg pg (26-34) MCHC 33.8 g/dl g/dl (32-36) RDW 12.2 % % (11.5-14.5) Plt Count 237 k/mm3 k/mm3 (150-375) MPV 10.9 fl H fl (7.4-10.4) Sodium Pending Potassium Pending Chloride Pending Carbon Dioxide Pending Anion Gap Pending BUN Pending Creatinine Pending Estim Creat Clear Calc Pending Estimated GFR Pending Glucose Pending POC Capillary Glucose 114 mg/dl H mg/dl (65-105) Calcium Pending Magnesium Pending 03/12/20 06:28 WBC RBC Hgb Hct MCV MCH MCHC RDW Plt Count MPV Sodium Potassium Chloride Carbon Dioxide Anion Gap BUN Creatinine Estim Creat Clear Calc Estimated GFR Glucose POC Capillary Glucose 148 mg/dl H mg/dl (65-105) Calcium Magnesium Patient hx anesthesia problems: none Family hx anesthesia problems: none PMFSH Past Medical History Medical History (Updated 03/10/20 @ 03:08 by Kenneth Salinas DO) 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
[2020-03-12] MEDS: PANTOPRAZOLE SODIUM IV 40 MG VIAL IV PUSH (08:39)
[2020-03-12] MEDS: LACTATED RINGERS 1,000 ML 150 ML IV CONT (09:43)
--- NOTE | 2020-03-12 09:46 | PC.NURSE ---
Pt to GI lab per [facility]. Report to PAPITO Clarke.
[2020-03-12 09:48] LABS: Glucose Point of Care 140 (65-105)
--- NOTE | 2020-03-12 10:58 | PCDIET ---
Nutrition Follow-Up Complete: Unintended wt loss related to stomach pain and poor appetite as evidence by 95% of UBW Diet advancement with PO intake of 50% or greater Goal:Goal not met; continue goal Pt current nutrition is npo Nutrition recommendation: agree Last recorded weight is 117.2 kg, recommend updated wt Bowel Motility: BM Labs Reviewed:Glucose 144, BUN 23, Cr 1.40, Na 135, Hgb/Hct 13.1, 38.8 Meds Noted: Insulin, lisinopril, Synthroid, LRs, Zofran, Protonix Additional Notes: Pt npo currently for EGD. Per MD, no GI bleed noted, lipase trending down and plans to advance diet after procedure today. Pt has been eating 100% of liquid diet. Recommend diet advancement as tolerated to diabetic. We will continue to follow every five days to monitor for adequate po intake, diet, labs.
--- NOTE | 2020-03-12 11:05 | WPDGIPROGNO ---
Progress Note: A&P Additional Plan GI [place] 12 Mar 2020 Feels better. VSS soft/NT Pertinent Labs/Imaging: Lipase 496->207. LFT's normal. Hct 39. Assessment and Plan: A. Epigastric pain/anorexia/Abnormal Imaging-Digestive and pancreas: -Concern for PUD vs. gastritis vs. biliary vs Pancreatitis -On ASA 81 mg daily, No additional NSAIDs -No active GI bleed -Pain is improving and tolerating diet -Lipase mildly elevated on admit at 496 and trending to 207 -CT imaging showed possible early pancreatitis -Tolerating diet at this time-advance diet as tolerated -Does not possible changes of chronic pancreatitis. Observe -EGD today -PPI BID, suggest adding carafate if pain worsens -If EGD unremarkable, consider HIDA scan -Care with NSAIDs and ASA B. Abnormal Imaging-Liver: -Hepatic steatosis on imaging -LFTs are normal -Weight loss, diet, exercise -Observe C. Family hx of colon cancer/Hx of colon polyp: last colon 1-1.5 years ago at [place]; observe. Cristina [facility] [phone] Subjective Date/time seen: 03/12/20 11:05 Objective Data Vital Signs Vital Signs: Vital Signs - 24 hr 03/11/20 14:00 03/11/20 19:55 03/12/20 06:33 Temperature 36.5 C 36.6 C 36.6 C Pulse Rate 68 71 68 Respiratory Rate 18 18 18 Blood Pressure 117/63 123/82 133/60 Pulse Oximetry 100 100 99 03/12/20 09:48 Temperature 36.1 C L Pulse Rate 86 Respiratory Rate 16 Blood Pressure 164/76 H Pulse Oximetry 96 Intake/Output Intake/Output: Intake & Output 03/09/20 03/10/20 03/11/20 03/12/20 23:59 23:59 23:59 23:59 Intake Total 2430 1920 200 Output Total 275 300 Balance 2155 1920 -100 Meds/Results Medications: Active Medications Generic Name Dose Route Start Last Admin Trade Name Freq PRN Reason Stop Dose Admin Acetaminophen 650 mg 03/10/20 08:44 03/11/20 05:42 Acetaminophen 325 Mg Tablet PO 650 mg Q6H PRN Administration Mild Pain (1-3) or Fever Hydrocodone Bitart/Acetaminophen 1 tab 03/10/20 08:44 Hydrocodone/Acetaminophen (*Crx) 5-325 Mg Tablet PO Q6H PRN Pain Rated 4-6 Aspirin 81 mg 03/10/20 09:00 03/11/20 08:34 Aspirin 81 Mg Enteric Tablet PO 81 mg DAILY ALEXUS Administration Dextrose 12.5 gm 03/10/20 03:12 Dextrose 50% 25 Gm/50 Ml Syringe IV PUSH PRN PRN Hypoglycemia Protocol Doxycycline Hyclate 100 mg 03/10/20 09:00 03/11/20 17:51 Doxycycline Hyclate 100 Mg Tablet PO 100 mg BID ALEXUS Administration Enoxaparin Sodium 40 mg 03/10/20 09:00 03/11/20 08:34 Enoxaparin 40 Mg/0.4 Ml Syringe SUB-Q 40 mg DAILY ALEXUS Administration Glucagon 1 mg 03/10/20 03:12 Glucagon For Inj 1 Mg Vial IM PRN PRN Hypoglycemia Protocol Glucose 15 gm 03/10/20 03:12 Glucose Oral Gel 15 Gm Of Glucse In 37.5 Gm Tube PO PRN PRN Hypoglycemia Protocol Dextrose 1,000 mls @ 100 mls/hr 03/10/20 03:12 Dextrose 5% 1,000 Ml IVPB PRN PRN Hypoglycemia Protocol Lactated Ringer's 1,000 mls @ 150 mls/hr 03/12/20 07:10 03/12/20 09:43 Lr - Lactated Ringers Iv IV CONT 150 mls/hr .Q6H40M ALEXUS Administration Insulin Aspart 2 - 5 units 03/10/20 08:00 03/12/20 07:37 Insulin Aspart (*Bkc) 100 Units/Ml SUB-Q Not Given TIDWM [facility] Protocol Levothyroxine Sodium 300 mcg 03/10/20 08:45 03/12/20 05:45 Levothyroxine Sodium 150 Mcg Tablet PO 300 mcg DAILY@0630 ALEXUS Administration Lisinopril 30 mg 03/10/20 09:00 03/11/20 08:34 Lisinopril 10 Mg Tablet PO 30 mg DAILY ALEXUS Administration Metoprolol Succinate 25 mg 03/10/20 09:00 03/11/20 08:35 Metoprolol Succinate Ext Rel 25 Mg Tabcr PO 25 mg DAILY ALEXUS Administration Morphine Sulfate 2 mg 03/10/20 08:44 Morphine Sulfate (*Crx) 2 Mg/Ml Inj IV PUSH Q4H PRN Pain Rated 7-10 Ondansetron HCl 4 mg 03/10/20 02:49 Ondansetron Inj 4 Mg/2 Ml Vial IV PUSH Q4H PRN Nausea Pantoprazole Sodium 40 mg 03/10/20
--- NOTE | 2020-03-12 12:33 | PC.NURSE ---
Pt returned from GI lab per [facility].
[2020-03-12] MEDS: lisinopriL 10 MG TABLET 30 MG PO (12:42)
[2020-03-12] MEDS: DOXYCYCLINE HYCLATE 100 MG TABLET PO (12:42)
[2020-03-12] MEDS: ASPIRIN 81 MG ENTERIC TABLET PO (12:43)
[2020-03-12] MEDS: METOPROLOL SUCCINATE EXT REL 25 MG TABCR PO (12:43)
[2020-03-12 12:47] LABS: Glucose Point of Care 114 (65-105)
--- NOTE | 2020-03-12 13:00 | PM.DS ---
DS: Admitting Diagnosis Admitting Diagnosis Admitting Diagnosis: Abdominal pain DS: Discharge Diagnosis Discharge Diagnosis (1) Abdominal pain, acute, epigastric: Code(s): R10.13 - Epigastric pain Status: Acute Assessment and Plan: Epigastric pain that has been persistent, sometimes postprandial but other times pain is constant; burning pain. Not associated with any particular food, (eg, fatty foods vs spicy, etc). Lipase WNL today, no clear evidence of acute pancreatitis on imaging, although should be noted there was some evidence of possible chronic pancreatitis on CT abd/pelvis. EGD performed today per Dr. Hansen. Possibly gastritis vs medication induced such as metformin vs resolving idiopathic pancreatitis as etiology of pain. Iressa can cause pancreatitis as well, although patient has been on this medication since 2003. US of gallbladder showed hepatic steatosis; otherwise unremarkable. Discussed with Dr. Hansen who is okay for discharge today if tolerates diet Follow up with PCP in 1-2 weeks; follow up with Dr. Hansen as needed Will resume Iressa for now, but will have patient follow up with PCP or oncologist to see if he needs to stop thi smedication Will hold metformin as this is a fairly new med and symptoms seemed to have started around the same time frame Will plan on discharge with protonix 40 mg daily # other chronic conditions- Will continue home medications if he continues to tolerate PO hypertension: Lisinopril; BP 150s sys most recently after procedure type 2 diabetes: Low-dose sliding scale insulin during stay. holding home metformin although I do not see this on his med list. Accuchecks ACHS, hypoglycemia protocol, correctional insulin, diabetic diet once tolerating diet. 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 While in the ED, patient was found to have stable vital signs, lipase was elevated at [address] abdomen/pelvis did not have nay significant findings. He had persistent nausea and abdominal pain. Patient admitted under this setting. Please see H&P for further details. Patient was admitted to the hospitalist service for further management/treatment. Patient underwent a gallbladder US which showed hepatic steatosis; no other remarkable findings. Patient's metformin was held during stay as well. He noted that this was started roughly one month prior to his symptoms started. His diet was advanced which he tolerated well. Dr. Hansen (GI) was consulted and was evaluated. He underwent an EGD on 03/12 with findings of chronic non-erosive gastritis; EDYTA for H pylori was negative. Lipase trended to WNL as well. It was suspected that his non-erosive gastritis was likely not contributing to his symptoms and felt that likely his Metformin was the main cause. Early or resolving pancreatitis was also suspected but felt to be less likely. His Iressa was held during stay, but resumed on discharge. Patient was to follow up wit his PCP and follow up with Dr. Hansen as needed. He was started on a pantoprazole daily at discharge. Patient and family were agreeable and comfortable with plan for discharge. Patient hemodynamically stable and in improved condition for discharge on 03/12
--- NOTE | 2020-03-12 13:48 | WPDGIPROGNO ---
Progress Note: A&P Additional Plan CARLO HANSEN MD, FACG, FACP UPPER ENDOSCOPY 03-12-2020 INDICATION: Epigastric pain/anorexia/Abnormal Imaging-Digestive and pancreas. POST-OP: Chronic, non-erosive gastritis; gastric biopsies for EDYTA negative. SEDATION: Per anesthesia With the patient in the left lateral decubitus position, the Fujinon upper endoscope was used to easily intubate the patient?s esophagus and advanced to the third portion of the duodenum. Careful inspection of the mucosa was made upon insertion and withdrawal of the endoscope with retroflexion in the stomach. FINDINGS: Esophagus: SC Jx at 40 cm. Esophagus is normal. No esophagitis, stricture, mass or Bowser?s. Stomach: Fundus, body and antrum with diffuse erythema and edema consistent with chronic, non-erosive gastritis; biopsies taken throughout the stomach. No ulceration, erosion, AVM or malignancy. Duodenum: Normal in the bulb, second and third portion. No complications, blood loss or implants. A. Epigastric pain/anorexia/Abnormal Imaging-Digestive and pancreas: -EGD 03-12-2020 with Chronic, non-erosive gastritis -EDYTA for H pylori negative -Patient is on aspirin 81 mg daily, no additional NSAIDs -No active GI bleed -Pain is improving and tolerating diet -Patient thinks Metformin is source of pain; resolved off -Lipase mildly elevated on admit at 496 and trending to 207 -CT imaging showed possible early pancreatitis; possible changes of chronic pancreatitis; observe -PPI -> Q am -Care with NSAIDs and ASA B. Abnormal Imaging-Liver: -Hepatic steatosis on imaging -LFTs are normal -Weight loss, diet, exercise -Observe C. Family hx of colon cancer/Hx of colon polyp: - Last colon 1-1.5 years ago at [place]; observe - Repeat per PCP No further GI recommendations. [facility] Case discussed with RADHA Palomo. Carlo Hansen M.D. [phone] Subjective Date/time seen: 03/12/20 13:48 Objective Data Vital Signs Vital Signs: Vital Signs - 24 hr 03/11/20 14:00 03/11/20 19:55 03/12/20 06:33 Temperature 36.5 C 36.6 C 36.6 C Pulse Rate 68 71 68 Respiratory Rate 18 18 18 Blood Pressure 117/63 123/82 133/60 Pulse Oximetry 100 100 99 03/12/20 09:48 03/12/20 11:28 03/12/20 11:38 Temperature 36.1 C L Pulse Rate 86 74 70 Respiratory Rate 16 16 15 Blood Pressure 164/76 H 84/42 L 101/52 L Pulse Oximetry 96 96 97 03/12/20 11:48 03/12/20 12:43 03/12/20 12:45 Temperature 36.1 C L Pulse Rate 65 65 72 Respiratory Rate 16 18 Blood Pressure 111/61 151/69 H Pulse Oximetry 98 100 03/12/20 13:00 Temperature 36.1 C L Pulse Rate 69 Respiratory Rate 18 Blood Pressure 150/74 H Pulse Oximetry 100 Intake/Output Intake/Output: Intake & Output 03/09/20 03/10/20 03/11/20 03/12/20 23:59 23:59 23:59 23:59 Intake Total 2430 1920 400 Output Total 275 300 Balance 2155 1920 100 Meds/Results Medications: Active Medications Generic Name Dose Route Start Last Admin Trade Name Freq PRN Reason Stop Dose Admin Acetaminophen 650 mg 03/10/20 08:44 03/11/20 05:42 Acetaminophen 325 Mg Tablet PO 650 mg Q6H PRN Administration Mild Pain (1-3) or Fever Hydrocodone Bitart/Acetaminophen 1 tab 03/10/20 08:44 Hydrocodone/Acetaminophen (*Crx) 5-325 Mg Tablet PO Q6H PRN Pain Rated 4-6 Aspirin 81 mg 03/10/20 09:00 03/12/20 12:43 Aspirin 81 Mg Enteric Tablet PO 81 mg DAILY ALEXUS Administration Dextrose 12.5 gm 03/10/20 03:12 Dextrose 50% 25 Gm/50 Ml Syringe IV PUSH PRN PRN Hypoglycemia Protocol Doxycycline Hyclate 100 mg 03/10/20 09:00 03/12/20 12:42 Doxycycline Hyclate 100 Mg Tablet PO 100 mg BID ALEXUS Administration Enoxaparin Sodium 40 mg 03/10/20 09:00 03/12/20 12:41 Enoxaparin 40 Mg/0.4 Ml Syringe SUB-Q Not Given DAILY ALEXUS Glucagon 1 mg 03/10/20 03:12 Glucagon For Inj 1 Mg Vial I
--- NOTE | 2020-03-12 13:55 | OP_ITS ---
This report was recreated as an operative note on March 20, 2020. Original report was signed by Dr. Carlo Hansen on March 12, 2020 at 1355. Additional Plan CARLO HANSEN MD, FACG, FACP UPPER ENDOSCOPY 03-12-2020 INDICATION: Epigastric pain/anorexia/Abnormal Imaging-Digestive and pancreas. POST-OP: Chronic, non-erosive gastritis; gastric biopsies for EDYTA negative. SEDATION: Per anesthesia With the patient in the left lateral decubitus position, the GameCr[employer] upper endoscope was used to easily intubate the patient?s esophagus and advanced to the third portion of the duodenum. Careful inspection of the mucosa was made upon insertion and withdrawal of the endoscope with retroflexion in the stomach. FINDINGS: Esophagus: SC Jx at 40 cm. Esophagus is normal. No esophagitis, stricture, mass or Bowser?s. Stomach: Fundus, body and antrum with diffuse erythema and edema consistent with chronic, non-erosive gastritis; biopsies taken throughout the stomach. No ulceration, erosion, AVM or malignancy. Duodenum: Normal in the bulb, second and third portion. No complications, blood loss or implants. A. Epigastric pain/anorexia/Abnormal Imaging-Digestive and pancreas: -EGD 03-12-2020 with Chronic, non-erosive gastritis -EDYTA for H pylori negative -Patient is on aspirin 81 mg daily, no additional NSAIDs -No active GI bleed -Pain is improving and tolerating diet -Patient thinks Metformin is source of pain; resolved off -Lipase mildly elevated on admit at 496 and trending to 207 -CT imaging showed possible early pancreatitis; possible changes of chronic pancreatitis; observe -PPI -> Q am -Care with NSAIDs and ASA B. Abnormal Imaging-Liver: -Hepatic steatosis on imaging -LFTs are normal -Weight loss, diet, exercise -Observe C. Family hx of colon cancer/Hx of colon polyp: - Last colon 1-1.5 years ago at [place]; observe - Repeat per PCP No further GI recommendations. Dispo per Hospitalist matthew. Case discussed with RADHA Palomo. Carlo Hansen M.D. [phone] Subjective Date/time seen: 03/12/20 13:48 Objective Data Vital Signs Vital Signs: Vital Signs - 24 hr 03/11/20 14:00 03/11/20 19:55 03/12/20 06:33 Temperature 36.5 C 36.6 C 36.6 C Pulse Rate 68 71 68 Respiratory Rate 18 18 18 Blood Pressure 117/63 123/82 133/60 Pulse Oximetry 100 100 99 03/12/20 09:48 03/12/20 11:28 03/12/20 11:38 Temperature 36.1 C L Pulse Rate 86 74 70 Respiratory Rate 16 16 15 Blood Pressure 164/76 H 84/42 L 101/52 L Pulse Oximetry 96 96 97 03/12/20 11:48 03/12/20 12:43 03/12/20 12:45 Temperature 36.1 C L Pulse Rate 65 65 72 Respiratory Rate 16 18 Blood Pressure 111/61 151/69 H Pulse Oximetry 98 100 03/12/20 13:00 Temperature 36.1 C L Pulse Rate 69 Respiratory Rate 18 Blood Pressure 150/74 H Pulse Oximetry 100 Intake/Output Intake/Output: Intake & Output 03/09/20 03/10/20 03/11/20 03/12/20 23:59 23:59 23:59 23:59 Intake Total 2430 1920 400 Output Total 275 300 Balance 2155 1920 100 Meds/Results Medications: Active Medications Generic Name Dose Route Start Last Admin Trade Name Freq PRN Reason Stop Dose Admin Acetaminophen 650 mg 03/10/20 08:44 03/11/20 05:42 Acetaminophen 325 Mg Tablet PO 650 mg Q6H PRN Administration Mild Pain (1-3) or Fever Hydrocodone Bitart/Acetaminophen 1 tab 1
== END 2020-03-12 15:15 | disposition home or self-care (01) ==
LOC: ANHED 01:03 → ANH3MED 02:57
PROVIDERS: Internal Medicine Gastroenterology; Physician Assistant; Admitting Provider Student in an Organized Health Care Education/Training Program; Emergency Provider Emergency Medicine; PCP Family Medicine; Visit Provider Internal Medicine
PROC: 0DJ08ZZ Inspection of Upper Intestinal Tract, Via Natural or Artificial Opening Endoscopic (ICD-10-PCS; CPT 43235; principal; 2020-03-12 10:00)
DX: R10.13 Epigastric pain (principal); K29.50 Unspecified chronic gastritis without bleeding; R93.3 Abnormal findings on diagnostic imaging of other parts of digestive tract; I10 Essential (primary) hypertension; E11.9 Type 2 diabetes mellitus without complications; E89.0 Postprocedural hypothyroidism; L70.8 Other acne; K76.0 Fatty (change of) liver, not elsewhere classified; N40.0 Benign prostatic hyperplasia without lower urinary tract symptoms; Z85.818 Personal history of malignant neoplasm of other sites of lip, oral cavity, and pharynx; Z92.21 Personal history of antineoplastic chemotherapy; Z92.3 Personal history of irradiation; Z79.84 Long term (current) use of oral hypoglycemic drugs; Z85.118 Personal history of other malignant neoplasm of bronchus and lung; Z87.891 Personal history of nicotine dependence; Z80.0 Family history of malignant neoplasm of digestive organs; Z86.010 Personal history of colon polyps; Z86.73 Personal history of transient ischemic attack (TIA), and cerebral infarction without residual deficits; Z79.82 Long term (current) use of aspirin; E66.01 Morbid (severe) obesity due to excess calories; Z68.41 Body mass index [BMI] 40.0-44.9, adult
CPT/HCPCS: 43239; 36415; 74177; 76705; 80048; 80053; 83036; 83605; 83690; 83735; 84484; 85025; 85027; 87081; 93005; 96361; 96372; 96374; 96375; 96376; 99285; A9270; C9113; G0378; J1650; J2270; J2405; J2704; J7030; J7120; Q9967

== ENCOUNTER 2020-06-14 09:02 | Emergency (ER) | payer MEDICARE, OTHER, SELFPAY ==
[2020-06-14 09:10] VITALS: BP 154/78; PULSE 79; RESP 12; TEMP 36.7; O2SAT 100
[2020-06-14 09:12] VITALS: BP 154/78; PULSE 79; RESP 12; TEMP 36.7; O2SAT 100
--- NOTE | 2020-06-14 09:16 | ED.EAR ---
HPI - Ear Problem General Chief complaint: Ear Stated complaint: ear inf Time Seen by Provider: 06/14/20 09:17 Source: patient Mode of arrival: ambulatory Limitations: no limitations History of Present Illness HPI Narrative: Carlos Mckay is a 69 yo male with a PMH of DM, HTN, GERD, hypothyroid, who comes to express care with complaints of R ear pain for past couple daysthat has worsened in spite of use of flonase and claritin. Sinus issues for the past month. Has been prescribed Claritin and Flonase by his primary care physician but ear continues to bother him. He had some leftover amoxicillin and took 500 mg last night but wants something stronger Related Data Home Medications Medication Instructions Recorded Confirmed aspirin 81 mg tablet,delayed 81 mg PO DAILY 04/18/19 06/09/20 release gefitinib 250 mg tablet 250 mg PO DAILY 04/18/19 06/09/20 lisinopril 30 mg PO DAILY 03/10/20 06/09/20 Allergies Allergy/AdvReac Type Severity Reaction Status Date / Time dapagliflozin [From [facility]] AdvReac Mild dehydration Verified 06/09/20 08:36 and weakness metformin AdvReac GI upset Verified 06/09/20 08:10 Review of Systems Review of Systems: Narrative: CONSTITUTIONAL: Denies fever, chills, sweats. EYES: Denies visual changes, redness, discharge. ENT: Denies rhinorrhea, congestion, sore throat, has right otalgia. CARDIOVASCULAR: Denies chest pain, palpitations, edema. RESPIRATORY: Denies dyspnea, wheezing, cough GASTROINTESTINAL: Denies abdominal pain, nausea, vomiting, diarrhea. GENITOURINARY: Denies dysuria, hematuria, abnormal discharge SKIN: Denies rash or itching. NEUROLOGIC: Denies numbness, or focal weakness. PSYCHIATRIC: Denies anxiety or depression. 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 Iressa Acquired hypothyroidism BMI 39.0-39.9,adult Diabetes mellitus type 2, noninsulin dependent Essential hypertension History of TIA (transient ischemic attack) Secondary to immunotherapy Iressa Morbid obesity Surgical History Surgical History H/O thyroidectomy 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 History of lung surgery Partial right lung lobectomy for metastatic disease History of tonsillectomy Right-sided for tonsil cancer Family History Family History Mother Family history of diabetes mellitus in first degree relative Family history of coronary artery disease Carcinoma of colon Acute myocardial infarction Hypertension Grandparent Diabetes mellitus Social History Social History Social History: Independent, active Smoking packs per day: 2 Smoking cigarettes per day: 40.0 Years smoked: 10 Smoking pack-years: 20.00 Smoking status: Former smoker Tobacco type: cigarettes Smokeless tobacco user: chewing tobacco Alcohol intake: current Substance use: never Additional living arrangements comments: Lives with Gender identity (if verbalized by the patient): Male Spiritual care concerns: No Comments At time of signature, I agree with nursing past medical, surgical, social and family history. There is no relevant family history pertinent to the presenting complaint. Exam Narrative: Exam Narrative: GENERAL: This is a well-nourished, well-developed patient, in mild distress. HEAD: normocephalic, atraumatic. EYES: Sclera clear/white. Vision is grossly intact. EARS: External ears normal, auditory canals clear on L and R is erythematous and without drainage, TM normal on L , some fluid behind R without perforation. Hearing grossly intact. NOSE: External nose normal without nasal discharge, nares without redness, no rhinorrhea. THROAT: Mucous membranes moist, posterior pharynx mild erythema, clear drainage N
== END 2020-06-14 09:35 | disposition home or self-care (01) ==
PROVIDERS: Emergency Provider Nurse Practitioner; PCP Family Medicine
DX: H92.01 Otalgia, right ear (principal); F17.220 Nicotine dependence, chewing tobacco, uncomplicated; E03.9 Hypothyroidism, unspecified; E11.9 Type 2 diabetes mellitus without complications; I10 Essential (primary) hypertension; Z86.73 Personal history of transient ischemic attack (TIA), and cerebral infarction without residual deficits; E66.01 Morbid (severe) obesity due to excess calories; Z68.39 Body mass index [BMI] 39.0-39.9, adult; K21.9 Gastro-esophageal reflux disease without esophagitis
CPT/HCPCS: 99213; G0463

== ENCOUNTER → 2020-10-23 08:46 | Outpatient (CLI) | payer MEDICARE, OTHER, SELFPAY ==
[2020-10-24 04:07] LABS: SARS-CoV-2 RNA PCR Negative
== END ==
PROVIDERS: PCP Family Medicine; Visit Provider Family Medicine
DX: J02.9 Acute pharyngitis, unspecified (principal); Z20.822 Contact with and (suspected) exposure to COVID-19
CPT/HCPCS: C9803; U0003; U0005

== ENCOUNTER 2020-10-24 10:10 | Emergency (ER) | payer MEDICARE, OTHER, SELFPAY ==
[2020-10-24 10:22] VITALS: BP 148/74; PULSE 83; RESP 12; TEMP 36.7; O2SAT 100
--- NOTE | 2020-10-24 10:38 | ED.GENADULT ---
HPI - General Adult General Chief complaint: Ear Stated complaint: sore throat Time Seen by Provider: 10/24/20 10:39 Source: patient, family, RN notes reviewed and old records reviewed Mode of arrival: ambulatory Limitations: no limitations History of Present Illness HPI narrative: 70-year-old male accompanied by presents to Express Care with complaints of sore throat and ear pain, sinus drainage for the past 3-5 days. Patient reports that 1 week ago he started with some frontal headache and sinus congestion which progressed to some right ear pain and sore throat. Patient has had prior cancer of his tonsils with radical neck surgery to the right side of neck with subsequent chemotherapy and radiation. He also has had right lower lobe of lung removed due to mets to lung but has been in remission since 2004. Patient states that he has had a fever for the previous 2 days up to 100F with sinus drainage and sore throat and right ear discomfort with no acute dyspnea, tachypnea or any accessory muscle use. Patient has had COVID vaccinations and he had a negative PCR test resulted yesterday. MD complaint: SORE THROAT Related Data Home Medications Medication Instructions Recorded Confirmed aspirin 81 mg tablet,delayed 81 mg PO DAILY 04/18/19 10/24/20 release Allergies Allergy/AdvReac Type Severity Reaction Status Date / Time dapagliflozin [From [facility]] AdvReac Mild dehydration Verified 10/24/20 10:17 and weakness metformin AdvReac GI upset Verified 10/24/20 10:17 Review of Systems Review of Systems: CONSTITUTIONAL: Positive low grade fevers up to 100F fever, some chills, or sweats. EYES: Denies visual changes, redness, or discharge. ENT:Positive rhinorrhea, congestion, sore throat, right otalgia. CARDIOVASCULAR: Denies chest pain, palpitations, or edema. RESPIRATORY: Denies cough or dyspnea. GASTROINTESTINAL: Denies abdominal pain, nausea, vomiting, or diarrhea. GENITOURINARY: Denies dysuria or hematuria. SKIN: Denies rash or itching. MUSCULOSKELETAL: Denies back pain, joint pain, or myalgia. NEUROLOGIC: Positive frontal headache, numbness, or weakness. PSYCHIATRIC: Denies anxiety or depression. 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 Iressa Acquired hypothyroidism BMI 39.0-39.9,adult BMI 40.0-44.9, adult Diabetes mellitus type 2, noninsulin dependent Essential hypertension History of TIA (transient ischemic attack) Secondary to immunotherapy Iressa Morbid obesity Surgical History Surgical History H/O thyroidectomy 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 History of lung surgery Partial right lung lobectomy for metastatic disease History of tonsillectomy Right-sided for tonsil cancer Family History Family History Mother Family history of diabetes mellitus in first degree relative Family history of coronary artery disease Carcinoma of colon Acute myocardial infarction Hypertension Grandparent Diabetes mellitus Social History Social History (Updated 10/24/20 @ 15:59 by Alma Rosa Capps NP) Social History: Independent, active Smoking packs per day: 2 Smoking cigarettes per day: 40.0 Years smoked: 10 Smoking pack-years: 20.00 Smoking status: Former smoker Tobacco type: cigarettes Smokeless tobacco user: chewing tobacco Additional smoking assessment comments: Quit in 1996 Alcohol intake: current Substance use: never Substance use type: does not use Living arrangements: with family Additional living arrangements comments: Lives with Gender identity (if verbalized by the patient): Male Spiritual care concerns: No Comments At time of signature, agree with nursing past medical, surgical,
== END 2020-10-24 11:15 | disposition home or self-care (01) ==
PROVIDERS: Emergency Provider Registered Nurse; PCP Family Medicine
DX: J02.9 Acute pharyngitis, unspecified (principal); J06.9 Acute upper respiratory infection, unspecified; Z87.891 Personal history of nicotine dependence; E03.9 Hypothyroidism, unspecified; E11.9 Type 2 diabetes mellitus without complications; Z86.73 Personal history of transient ischemic attack (TIA), and cerebral infarction without residual deficits; I10 Essential (primary) hypertension; E66.01 Morbid (severe) obesity due to excess calories; Z68.41 Body mass index [BMI] 40.0-44.9, adult; Z85.89 Personal history of malignant neoplasm of other organs and systems
CPT/HCPCS: 87081; 87880; 99213; G0463

== ENCOUNTER 2021-01-25 11:35 | Inpatient (IN) | payer MEDICARE, OTHER, SELFPAY ==
[2021-01-25] VITALS (33 sets, daily range): BP systolic 101–193; BP diastolic 58–91; PULSE 102–122; RESP 17–28; TEMP 36.8–39.4; O2SAT 91–100; BMI 41.1
--- NOTE | ~2021-01-25 | CT_ITS ---
EXAMINATION: CT soft tissue neck w con EXAM DATE: 01/25/2021 15:30 INDICATION: Sore throat, history of tongue cancer. Tonsil cancer. Headache. TECHNIQUE: Spiral CT of the neck was performed following intravenous injection of 75 mL Omnipaque 350 . Axial, coronal and sagittal images were reviewed. The dose-length product (DLP) for this examinat ion was 595.11 mGy-cm. The exposure was tailored according to patient size (auto mA exposure control ), and iterative reconstruction (ASIR) was used as additional dose reduction technique. There is no prior study for comparison. FINDINGS: Right-sided cervical surgical changes probably radical lymph node dissection, resection of the right submandibular gland. Ill-defined soft tissue surrounding the right carotid, internal jugula r veins consistent with postoperative scarring, radiation related change. Mild narrowing of the right carotid bulb could be atherosclerosis, and narrowing of the right internal jugular vein probably fro m postoperative scarring, radiation related change. No jugular venous thrombosis. Small left thyroid lobe identified. Parotid glands are unremarkable. Left submandibular lymph nodes which are within normal size limits, but 1 has a rounded shape measuri ng 8 mm diameter. The superior mediastinum is unremarkable. The airway is unremarkable. Paraphary ngeal and pre-glottic fat planes are preserved. The orbits are unremarkable. Visualized sinuses a nd mastoid air cells are well aerated. Lung apices are clear. There is mild to moderate cervical s pondylosis. IMPRESSION: 1. Right-sided cervical surgical changes. 2. Left submandibular lymph nodes upper limits of normal in size, probably reactive but difficult to exclude malignancy. Reviewed, dictated and finalized at location B. T LINE OPERATOR IMPRESSION: 1. Right-sided cervical surgical changes. 2. Left submandibular lymph nodes upper limits of normal in size, probably jay ctive but difficult to exclude malignancy.
--- NOTE | ~2021-01-25 | XR_ITS ---
EXAMINATION: XR chest 2V DATE: 01/25/2021 12:44 INDICATION: Near syncope. TECHNIQUE: Frontal and lateral views of the chest were obtained. COMPARISON: Chest 2 views 03/16/2009, CT abdomen and pelvis 03/10/2020 FINDINGS: There is mild atelectasis versus scarring in left lower lung zone. No pleural effusion or p neumothorax. The heart size is normal. IMPRESSION: 1. Mild atelectasis versus scarring left lower lung zone. Reviewed, dictated and finalized at location A. CTOR OF PHYSICAL THERAPY
--- NOTE | ~2021-01-25 | XR_ITS ---
EXAMINATION: XR chest 1V portable DATE: 01/26/2021 14:37 INDICATION: Cough. Coarse lung sounds. TECHNIQUE: A single frontal view of the chest was obtained. COMPARISON: Chest 2 views 01/25/2021, CT abdomen and pelvis 03/10/2020 FINDINGS: The lung volumes are normal. There are interstitial opacities in the right lower lung zone and left mid and lower lung zones. No pleural effusion or pneumothorax. The heart size is normal. IMPRESSION: 1. Mild chronic interstitial lung disease. Reviewed, dictated and finalized at location A. CTOR OF PRODUCT DESIGN
--- NOTE | ~2021-01-25 | CT_ITS ---
EXAMINATION: CT brain [facility] EXAM DATE: 01/25/2021 15:30 INDICATION: Syncope. TECHNIQUE: Spiral CT of the head was performed without contrast. Axial, coronal and sagittal images were reviewed. The dose-length product (DLP) for this examination was 605.33 mGy-cm. The exposure w as tailored according to patient size, and iterative reconstruction (ASIR) was used as additional dos e reduction technique. Comparison is made to prior examination from 11/28/2011. FINDINGS: There is no acute intraparenchymal hemorrhage. No evidence of intraparenchymal brain mass lesion. No evidence of acute infarction. Please note that initial head CT has limited sensitivity f or small or acute infarctions. There is mild periventricular and subcortical hypodensity, nonspecifi c but probably related to small vessel ischemic disease. There is mild prominence of the sulci and ventricles related to cerebral atrophy. There is intracranial carotid arteriosclerosis. There are no extra-axial collections. There is no mass effect or midline shift. The orbits are unremarkable. Soft tissue is unremarkable. The visualized sinuses and mastoid air cells are well aerated. IMPRESSION: 1. No acute intracranial findings. 2. Chronic age related findings. Reviewed, dictated and finalized at location B. D CARE ASSOCIATE TEACHER
--- NOTE | ~2021-01-25 | CT_ITS ---
EXAMINATION: CT chest abdomen pelvis wo con DATE: 01/27/2021 08:50 INDICATION: Fever. TECHNIQUE: Computed tomography (CT) of the chest, abdomen, and pelvis was performed without intraveno us contrast. Automated exposure control and iterative reconstruction technique were employed. The dos e-length product was 1800.76 mGy-cm. COMPARISON: CT abdomen and pelvis 03/10/2020 FINDINGS: CHEST CT: There are centrilobular nodules and tree-in-bud opacities in the lungs predominantly involving the lo wer lobes and right upper lobe. There is chronic widespread peripheral septal thickening in the lungs with a lower lung predominance. There are patchy groundglass opacities in the upper lobes, left wors e than right. There is a staple line in right lower lobe with adjacent airspace opacities are worsene d from 03/10/2020. There is mild scarring at the lung apices. There is a trace right pleural effusion . The heart size is normal. No pericardial effusion. There are coronary artery calcifications. There is mild thoracic spondylosis. ABDOMEN/PELVIS CT: There is diffuse hepatic steatosis. The spleen is normal. The gallbladder is normal in size and conta ins contrast. The pancreas, adrenal glands, and kidneys are normal. There is no urolithiasis. There i s an umbilical hernia containing fat. The prostate is moderately enlarged. There are no dilated loops of bowel. The appendix is not visualized. There are no pathologically enlarged lymph nodes. There is no free intraperitoneal fluid. There is mild lumbar spondylosis. IMPRESSION: 1. Multifocal pneumonia. 2. Chronic interstitial lung disease. Reviewed, dictated and finalized at location A. BURNER SUPERVISOR
--- NOTE | 2021-01-25 12:00 | ECG_ITS ---
Measurements Intervals [place] Rate: 113 P: 15 [place]: 124 QRS: -6 QRSD: 86 T: 22 QT: 303 QTc: 416 Interpretive Statements SINUS TACHYCARDIA DELAYED PRECORDIAL R/S TRANSITION BASELINE ARTIFACT- II, III, AVR, AVL, AVF ABNORMAL ECG Electronically Signed On 01-25-2021 12:58:42 DISC INSPECTOR by James Love D.O.
[2021-01-25 12:36] LABS: Basophils Absolute Auto 0.1 K/mm3 (0.0-0.1); Basophils Percent Auto 0.6 % (0.2-1.2); Eosinophils Percent Auto 0.3 % (0-4.4); Hemoglobin 13.8 g/dL (14.0-18.0); Immature Granulocyte Absolute 0.03 K/mm3 (0.00-0.031); Immature Granulocyte Percent A 0.4 % (0-0.5); Lymphocytes Absolute Auto 0.28 K/mm3 (0.9-3.2); Lymphocytes Percent Auto 3.6 % (18.3-44.2); Mean Corpuscular HGB Conc 33.7 g/dl (32-36); Mean Corpuscular Hemoglobin 27.4 pg (26-34); Mean Corpuscular Volume 81.5 fl (80-100); Mean Platelet Volume 10.4 fl (7.4-10.4); Monocytes Absolute Auto 0.5 K/mm3 (0.1-0.6); Monocytes Percent Auto 6.1 % (2.6-8.5); Neutrophils Absolute Auto 6.9 K/mm3 (1.3-6.7); Platelet Count Result 155 k/mm3 (150-375); Red Blood Count 5.03 M/mm3 (4.6-6.20); Red Cell Distribution Width 13.5 % (11.5-14.5); White Blood Count 7.8 K/mm3 (4.5-10.0)
[2021-01-25 12:52] LABS: Anion Gap 11 mmol/L (8-16); Blood Urea Nitrogen 20 mg/dL (9-20); Calcium 8.8 mg/dL (8.4-10.2); Carbon Dioxide 24 mmol/L (22-30); Chloride 98 mmol/L (98-107); Estimated CRCL calculation 66 ml/min; Estimated Glomerular Filt Rate 60; Glucose 176 mg/dL (65-110); Potassium 4.2 mmol/L (3.4-5.0); Sodium 133 mmol/L (137-145)
--- NOTE | 2021-01-25 14:47 | ED.GENADULT ---
HPI - General Adult General Chief complaint: Dizziness <Yennifer Angulo MD - Last Filed: 01/25/21 17:00> Stated complaint: NEAR SYNCOPE, FLU LIKE SYMPTOMS <Yennifer Angulo MD - Last Filed: 01/25/21 17:00> Time Seen by Provider: 01/25/21 14:29 <Yennifer Angulo MD - Last Filed: 01/25/21 17:00> Source: patient, family, EMS and RN notes reviewed <Yennifer Angulo MD - Last Filed: 01/25/21 17:00> Mode of arrival: EMS <Yennifer Angulo MD - Last Filed: 01/25/21 17:00> Limitations: no limitations <Yennifer Angulo MD - Last Filed: 01/25/21 17:00> History of Present Illness HPI narrative: Patient brought to the ED by his , ambulance because of not feeling well. The telling me that patient been feeling sick for the last 3 days, dizzy, lightheadedness, headache, coughing, sore throat, chills. Patient got up to go to the bathroom fell backward, was able to hold him to avoid falling on the ground, eyes rolled up, was unresponsive and incoherent for few seconds. Patient is fully vaccinated for COVID-19, got the booster dose on December 16. History of diabetes, hypothyroidism, hypertension, acid reflux. Patient on aspirin. <Yennifer Angulo MD - Last Filed: 01/25/21 17:00> Related Data Home medications: Home Medications Medication Instructions Recorded Confirmed aspirin 81 mg tablet,delayed 81 mg PO DAILY 04/18/19 01/04/21 release loratadine [Claritin] 10 mg PO PRN PRN 01/25/21 <Yennifer Angulo MD - Last Filed: 01/25/21 17:00> Allergies/adverse reactions: Allergies Allergy/AdvReac Type Severity Reaction Status Date / Time dapagliflozin [From [facility]] AdvReac Mild dehydration Verified 01/25/21 11:51 and weakness metformin AdvReac GI upset Verified 01/25/21 11:51 <Yennifer Angulo MD - Last Filed: 01/25/21 17:00> Review of Systems Review of Systems: CONSTITUTIONAL: , chills, or sweats. EYES: Denies visual changes, redness, or discharge. ENT: Denies rhinorrhea, congestion, sore throat, or otalgia. CARDIOVASCULAR: Denies chest pain, palpitations, or edema. RESPIRATORY: cough or dyspnea. GASTROINTESTINAL: Denies abdominal pain, nausea, vomiting, or diarrhea. GENITOURINARY: Denies dysuria or hematuria. SKIN: Denies rash or itching. MUSCULOSKELETAL: Denies back pain, joint pain, or myalgia. NEUROLOGIC: Denies numbness or weakness PSYCHIATRIC: Denies anxiety or depression. 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 Iressa Acquired hypothyroidism BMI 39.0-39.9,adult BMI 40.0-44.9, adult Diabetes mellitus type 2, noninsulin dependent Essential hypertension History of TIA (transient ischemic attack) Secondary to immunotherapy Iressa Morbid obesity <Yennifer Angulo MD - Last Filed: 01/25/21 17:00> Surgical History Surgical History: Surgical History H/O thyroidectomy 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 History of lung surgery Partial right lung lobectomy for metastatic disease History of tonsillectomy Right-sided for tonsil cancer <Yennifer Angulo MD - Last Filed: 01/25/21 17:00> Family History Family History: Family History Mother Family history of diabetes mellitus in first degree relative Family history of coronary artery disease Carcinoma of colon Acute myocardial infarction Hypertension Grandparent Diabetes mellitus <Yennifer Angulo MD - Last Filed: 01/25/21 17:00> Social History Social History: Social History Social History: Independent, active Smoking packs per day: 2 Smoking cigarettes per day: 40.0 Years smoked: 10 Smoking pack-years: 20.00 Tobacco type: cigarettes Smokeless tobacco user: chewing
--- NOTE | 2021-01-25 14:55 | PC.NURSE ---
Dr. Angulo at bedside for exam. Pt now febrile.
[2021-01-25 15:12] LABS: Alveolar/Arterial O2 Gradient 51.5 mmHg; Base Excess ABG -1.4 mEq/l (+/-2.0); Device ROOM AIR; Fractional Inspired Oxygen 21 %; Modified Allen's Test Pass; Oxygen Content ABG 18.9 %vol (16.0-22.0); Oxygen Saturation ABG 91.3 % (95.0-100.0); Oxyhemoglobin 90.5 % THb (90.0-100.0); PCO2 ABG 33.5 mmHg (35.0-45.0); PO2 ABG 58.1 mmHg (80.0-100.0); PO2 FiO2 Ratio Arterial Blood 2.77 %; Site Drawn LEFT RADIAL; Total Hemoglobin 14.9 g/dL (12.0-18.0); pH ABG 7.436 (7.350-7.450)
[2021-01-25] MEDS: ACETAMINOPHEN 500 MG TABLET 1000 MG PO (15:39)
[2021-01-25] MEDS: SODIUM CHLORIDE 0.9% IV 1,000 ML 999 ML IV CONT (15:40)
--- NOTE | 2021-01-25 15:54 | PC.NURSE ---
Pt refuses straight cath at this time. States will attempt to void.
[2021-01-25 16:13] LABS: Lactic Acid Reflex 1.6 mmol/L (0.7-2.1)
[2021-01-25 16:14] LABS: INR 1.3; Prothrombin Time 15.7 Seconds (11.1-14.7)
[2021-01-25 16:15] LABS: Partial Thromboplastin Time 30.4 SECONDS (22.3-36.8)
[2021-01-25 16:18] LABS: Add Urine Microscopic? YES; Appearance Urine Clear (Clear); Bilirubin Urine Negative (Negative); Blood Urine 1+ (Negative); Color Urine Yellow (Yellow); Glucose Urine UA Negative (Negative); Ketones Urine Negative (Negative); Leukocyte Esterase Ur Negative LEU/UL (Negative); Mucus Urine Rare /lpf; Nitrate Urine Negative (Negative); Protein Urine 1+ mg/dL (Negative); Urobilinogen Urine Negative mg/dL (<2.0); WBC Urine 0-3 /hpf
--- NOTE | 2021-01-25 16:22 | PC.NURSE ---
Pt made aware that visitor will have to exit the room and not visit until covid test is negative, and that the testing process takes sometimes up to 48 hours. Pt requests to wait to swab me until my urine comes back; that way we'll know if I'm going to stay or not and you can do it then or before I leave .
[2021-01-25 16:31] LABS: Specific Grav Ur 1.054 (1.001-1.035)
[2021-01-25 16:42] LABS: CRP 4.1 mg/dL (<1.0)
--- NOTE | 2021-01-25 16:49 | PC.NURSE ---
Note pt's temperature increased after tylenol po and IVF initiation. 3 blankets and pt's coat removed, and pt left with a sheet to cover with. Dr. Angulo made aware of rising temp.
[2021-01-25] MEDS: KETOROLAC 15 MG/ML VIAL (*BKC) IV PUSH (17:08)
[2021-01-25] MEDS: SODIUM CHLORIDE 0.9% IV 1,000 ML 125 ML IV CONT ×2 (17:20→21:06)
--- NOTE | 2021-01-25 17:46 | PC.NURSE ---
COVID swab obtained and pt given water po.
--- NOTE | 2021-01-25 18:47 | PC.NURSE ---
Report to PAPITO Menjivar, 3rd med surg. 2nd IV abx initiated, IVF bolus for sepsis initiated, LR #1 and #2 hanging, upon transfer to floor. Unable to chart both liters hanging at same time. IV cefepime completed.
--- NOTE | 2021-01-25 19:54 | PM.IMHP ---
H&P: HPI History of Present Illness Date/Time: 01/25/21 19:54 Chief Complaint: Shortness of breath. Narrative: This is a 70-year-old male with past medical history significant for type 2 diabetes mellitus, gastroesophageal reflux disease, hypertension, seasonal allergies, hypothyroidism, morbid obesity. Patient presented today to the emergency room after he has not been feeling well for the last 3 days or so having chills, fevers, rigors, cough, shortness of breath, poor appetite, had an episode in which he nearly passed out while using the bathroom was with him did not strike the floor as well was able to catch him under way down he was briefly incoherent and came back on his own. Preliminary workup was significant for chest x-ray with lung infiltrates a CT of the neck showed some lymphadenopathies in the submandibular area. Patient has been admitted for further evaluation management and treatment. Review of Systems Review of Systems: Patient with cold-like symptoms for a few days, sore throat ,fever ,chills, cough nonproductive, poor appetite. Constitutional: Constitutional: Reports chills, Reports fatigue, Reports fever(s), Reports lethargy, Reports malaise, Reports poor appetite and Reports weakness Eyes: Eyes: Denies change in vision ENT: Denies dysphagia, Reports dizziness, Reports nasal congestion, Denies nasal discharge, Denies nasal obstruction and Reports odynophagia Cardiovascular: Cardiovascular: Denies claudication, Denies leg edema, Denies radiating jaw, neck or arm pain, Denies palpitations, Denies dyspnea, Denies dyspnea on exertion, Denies orthopnea and Denies paroxysmal nocturnal dyspnea Respiratory: Respiratory: Denies change in phlegm color, Reports cough, Denies excessive phlegm production, Reports dyspnea and Denies wheezing Gastrointestinal: Gastrointestinal: Denies abdominal pain, Denies dyspepsia, Denies heartburn, Denies diarrhea, Denies nausea and Denies vomiting Genitourinary: Genitourinary: Reports no additional male genitourinary complaints and Reports as per HPI Musculoskeletal: Musculoskeletal: Reports myalgias Integumentary/Breasts: Skin/Breast: Denies rash Neurologic: Denies focal weakness and Denies Sensory deficit (Neuro) Psychiatric: Psychiatric: Reports no additional psychiatric complaints and Reports as per HPI Endocrine: Endocrine: Reports no additional endocrine complaints and Reports as per HPI Hematologic/Lymphatic: Hematologic/Lymphatic: Reports no additional hematologic/lymphatic complaints and Reports as per HPI Allergic/Immunologic: Allergic/Immunologic: Reports no additional allergic/immunologic complaints and Reports as per HPI [facility] Past Medical History Medical History 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 Iressa Acquired hypothyroidism BMI 39.0-39.9,adult BMI 40.0-44.9, adult Diabetes mellitus type 2, noninsulin dependent Essential hypertension History of TIA (transient ischemic attack) Secondary to immunotherapy Iressa Morbid obesity Surgical History Surgical History H/O thyroidectomy 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 History of lung surgery Partial right lung lobectomy for metastatic disease History of tonsillectomy Right-sided for tonsil cancer Family History Family History Mother Family history of diabetes mellitus in first degree relative Family history of coronary artery disease Carcinoma of colon Acute myocardial infarction Hypertension Grandparent Diabetes mellitus Social History Social History Social History: Independent, active Smoking packs per day: 1 Smoking cigarettes per day: 20.0 Years smoked: 5 Smoking pack-years: 5.00 Smoking status: Former smoker Tobacco type: cigarettes Smokeless tobacco user: chewing tobacco Add
--- NOTE | 2021-01-25 20:15 | ADMGEN ---
This patient, Carlos Mckay, was admitted to 3 [facility] Surg Room 311-01. Patient/family oriented to hospital policies and general routines including ID bracelet, bed and alarms, visiting hours, pain management, procedures, bathroom and other care routines, personal items, smoking policy, room service/diet, and visiting hours. Information on how to activate the Rapid Response Team has been discussed. Patient/Family are encouraged to report perceived risks to care and to ask questions if they do not understand what they are told or what they should do.
[2021-01-25 21:26] LABS: Glucose Point of Care 137 mg/dl (65-105)
[2021-01-26] VITALS (9 sets, daily range): BP systolic 108–187; BP diastolic 52–81; PULSE 81–103; RESP 16–20; TEMP 36.2–36.8; O2SAT 93–98
[2021-01-26] MEDS: ACETAMINOPHEN 325 MG TABLET 650 MG PO ×3 (00:37→13:14)
[2021-01-26] MEDS: LEVOTHYROXINE SODIUM 100 MCG TABLET 200 MCG PO (05:37)
[2021-01-26 07:02] LABS: Basophils Percent Auto 0.4 % (0.2-1.2); Eosinophils Percent Auto 0.1 % (0-4.4); Hematocrit 35.3 % (42.0-52.0); Hemoglobin 11.8 g/dL (14.0-18.0); Immature Granulocyte Absolute 0.04 K/mm3 (0.00-0.031); Immature Granulocyte Percent A 0.4 % (0-0.5); Immature Platelet Fraction Pct 4.3 % (0.9-11.2); Lymphocytes Absolute Auto 0.54 K/mm3 (0.9-3.2); Lymphocytes Percent Auto 5.5 % (18.3-44.2); Mean Corpuscular HGB Conc 33.4 g/dl (32-36); Mean Corpuscular Hemoglobin 27.6 pg (26-34); Mean Corpuscular Volume 82.7 fl (80-100); Mean Platelet Volume 10.9 fl (7.4-10.4); Monocytes Absolute Auto 0.9 K/mm3 (0.1-0.6); Monocytes Percent Auto 9.1 % (2.6-8.5); Neutrophils Absolute Auto 8.3 K/mm3 (1.3-6.7); Neutrophils Percent Auto 84.5 % (45.5-73.1); Platelet Count Result 144 k/mm3 (150-375); Red Blood Count 4.27 M/mm3 (4.6-6.20); Red Cell Distribution Width 13.9 % (11.5-14.5); White Blood Count 9.8 K/mm3 (4.5-10.0)
[2021-01-26 07:23] LABS: Anion Gap 5 mmol/L (8-16); Blood Urea Nitrogen 19 mg/dL (9-20); Calcium 8.1 mg/dL (8.4-10.2); Carbon Dioxide 27 mmol/L (22-30); Chloride 102 mmol/L (98-107); Estimated CRCL calculation 67 ml/min; Estimated Glomerular Filt Rate 60; Glucose 123 mg/dL (65-110); Sodium 134 mmol/L (137-145)
[2021-01-26] MEDS: PANTOPRAZOLE 40 MG TABLET PO (08:07)
[2021-01-26] MEDS: METOPROLOL SUCCINATE EXT REL 25 MG TABCR PO (08:08)
[2021-01-26 08:39] LABS: Glucose Point of Care 121 mg/dl (65-105)
[2021-01-26] MEDS: SODIUM CHLORIDE 0.9% IV 1,000 ML 125 ML IV CONT (09:43)
[2021-01-26 10:33] LABS: Thyroid Stimulating Hormone Reflex 0.679 uIU/mL (0.465-4.68)
[2021-01-26 10:45] LABS: Folic Acid 5.9 ng/mL (2.76->20)
[2021-01-26 12:11] LABS: Glucose Point of Care 90 mg/dl (65-105)
--- NOTE | 2021-01-26 13:31 | PM.IMPN ---
Progress Note: A&P Assessment and Plan (1) Acute viral syndrome: Code(s): B34.9 - Viral infection, unspecified Status: Acute Assessment and Plan: Patient symptoms are consistent with a viral illness especially since his is now coming down with similar symptoms -he is negative for influenza and strep. COVID PCR pending. he has had 3 covid vacines. -lung sounds are coarse but no shortness of breath or hypoxia. He does have a cough. He was started on vancomycin and cefepime for unclear reasons. I am going to stop this at this time -stop iv fluids due to elevated bp and crackles. Stop antibiotics since there was no source of bacterial infection at this time. (2) Near syncope: Code(s): R55 - Syncope and collapse Status: Acute Assessment and Plan: Likely secondary to acute illness -Echocardiogram from 2020 shows grade 1 diastolic dysfunction and normal systolic function. no further cardiac symptoms -check orthostatics (3) Diabetes mellitus: Qualifiers: Diabetes mellitus type: type 2 Diabetes mellitus long chain dyeing machine operator insulin use: without penitentiary use Diabetes mellitus complication status: with hyperglycemia Qualified Code(s): E11.65 - Type 2 diabetes mellitus with hyperglycemia Code(s): E11.9 - Type 2 diabetes mellitus without complications Status: Acute Assessment and Plan: Last blood sugar 90, patient's appetite is decreased -hold hypoglycemic medications -continue sliding scale insulin (4) Morbid obesity: Code(s): E66.01 - Morbid (severe) obesity due to excess calories Status: Acute Assessment and Plan: Lifestyle and diet modification (5) Hypothyroidism: Qualifiers: Hypothyroidism type: acquired Qualified Code(s): E03.9 - Hypothyroidism, unspecified Code(s): E03.9 - Hypothyroidism, unspecified Status: Acute Assessment and Plan: Continue Synthroid -TSH within normal limits (6) Hypertensive urgency: Code(s): I16.0 - Hypertensive urgency Status: Acute Assessment and Plan: Last bp 182/74 with symptoms of a headache but no neurological dysfunction -confirmed with he also takes lisinopril 30mg daily in addition to his metoprolol -will stop IV fluids, give oral lisinopril stat and if he continues to be high will give hydralazine -no evidence of end organ damage -Monitor closely Time Spent With Patient Time with patient: 25 - 35 minutes Subjective Date/time seen: 01/26/21 13:31 Interval history: Pt is a 70-year-old male here for viral illness. Patient states his main complaint today is a headache. He has a frontal headache that is persistent. He has no numbness, tingling, problems with speech, or weakness to any of his extremities. He says he continues to have a dry cough. He does feel better today compared to yesterday but not close to his baseline. He still continues not to have much of an appetite. He also mentions that his is now coming down with what he has as well. He was unsure of his blood pressure medications but did confirm with his that he takes lisinopril 30 mg daily. He also thinks he feels a little bit more swollen with his left arm and lower extremities. He has no lightheadedness or dizziness recently. Review of Systems Review of Systems: All systems reviewed & are unremarkable except as noted in HPI and below Exam Narrative: General: Well developed well nourished patient in NAD HEENT: normocephalic, changes to his right neck consistent with previous tonsillar cancer treatment Neck: supple Neuro: Alert and oriented x4 CV:RRR Resp: Crackles and coarse breath sounds bilaterally. No conversational dyspnea. No wheezing Abd: Soft, non distended. No pain to palpation. Positive bowel sounds Extremities: Swelling to the left arm likely due to the IV site. He has trace swelling to the lower extremities. No pitti
[2021-01-26] MEDS: lisinopriL 10 MG TABLET 30 MG PO (13:51)
[2021-01-26 15:03] LABS: Alanine Aminotransferase 12 U/L (4-50); Albumin Level 3.3 g/dL (3.5-5.1); Alkaline Phosphatase 47 U/L (38-126); Aspartate Amino Transferase 23 U/L (17-59); Bilirubin,Total 0.7 mg/dL (0.2-1.3)
[2021-01-26 15:06] LABS: CRP > 9.0 mg/dL (<1.0); Lactate Dehydrogenase 425 U/L (313-618)
[2021-01-26 17:00] LABS: Glucose Point of Care 96 mg/dl (65-105)
[2021-01-26] MEDS: ENOXAPARIN 40 MG/0.4 ML SYRINGE SUB-Q (17:36)
[2021-01-26 19:35] LABS: SARS-CoV-2 RNA PCR Negative
[2021-01-26] MEDS: KETOROLAC 15 MG/ML VIAL (*BKC) IV PUSH (21:52)
[2021-01-26 21:53] LABS: Glucose Point of Care 98 mg/dl (65-105)
[2021-01-27] VITALS (7 sets, daily range): BP systolic 114–183; BP diastolic 47–88; PULSE 97–108; RESP 15–20; TEMP 36.6–37.3; O2SAT 93–100
[2021-01-27] MEDS: ACETAMINOPHEN 325 MG TABLET 650 MG PO (06:26)
[2021-01-27] MEDS: LEVOTHYROXINE SODIUM 100 MCG TABLET 200 MCG PO (06:26)
[2021-01-27 06:28] LABS: Basophils Percent Auto 0.6 % (0.2-1.2); Eosinophils Percent Auto 0.4 % (0-4.4); Hematocrit 37.4 % (42.0-52.0); Hemoglobin 12.4 g/dL (14.0-18.0); Immature Granulocyte Absolute 0.04 K/mm3 (0.00-0.031); Immature Granulocyte Percent A 0.6 % (0-0.5); Immature Platelet Fraction Pct 4.2 % (0.9-11.2); Lymphocytes Absolute Auto 0.37 K/mm3 (0.9-3.2); Lymphocytes Percent Auto 5.4 % (18.3-44.2); Mean Corpuscular HGB Conc 33.2 g/dl (32-36); Mean Corpuscular Volume 81.3 fl (80-100); Mean Platelet Volume 10.7 fl (7.4-10.4); Monocytes Absolute Auto 0.5 K/mm3 (0.1-0.6); Neutrophils Absolute Auto 5.9 K/mm3 (1.3-6.7); Platelet Count Result 145 k/mm3 (150-375); Red Cell Distribution Width 13.7 % (11.5-14.5); White Blood Count 6.8 K/mm3 (4.5-10.0)
[2021-01-27 06:52] LABS: Anion Gap 8 mmol/L (8-16); Blood Urea Nitrogen 18 mg/dL (9-20); Calcium 8.3 mg/dL (8.4-10.2); Carbon Dioxide 27 mmol/L (22-30); Chloride 96 mmol/L (98-107); Estimated CRCL calculation 67 ml/min; Estimated Glomerular Filt Rate 60; Glucose 106 mg/dL (65-110); Magnesium 1.5 mg/dL (1.6-2.3); Sodium 131 mmol/L (137-145)
[2021-01-27] MEDS: hydrALAZINE HCL 20 MG/ML VIAL 10 MG IV PUSH (07:08)
[2021-01-27 08:08] LABS: Glucose Point of Care 96 mg/dl (65-105)
[2021-01-27] MEDS: PANTOPRAZOLE 40 MG TABLET PO (08:15)
[2021-01-27] MEDS: MAGNESIUM SULF 2 GM/WATER 50ML 2 GM/50 ML BAG IVPB (08:15)
[2021-01-27] MEDS: LORATADINE 10 MG TABLET PO (08:16)
[2021-01-27] MEDS: CYANOCOBALAMIN 1,000 MCG TABLET 1000 MCG PO (08:16)
[2021-01-27 08:19] LABS: CRP 25.5 mg/dL (<1.0)
[2021-01-27 11:47] LABS: Glucose Point of Care 94 mg/dl (65-105)
--- NOTE | 2021-01-27 13:46 | PM.IMPN ---
Progress Note: A&P Assessment and Plan (1) Multifocal pneumonia: Code(s): J18.9 - Pneumonia, unspecified organism Status: Acute Assessment and Plan: Patient's symptoms and CT findings consistent with PNA -patient is now having sputum production, will obtain sputum culture -COVID and influenza is negative. Will check Legionella antigens -ceftriaxone azithromycin were started. He was previously on vancomycin and cefepime (2) Near syncope: Code(s): R55 - Syncope and collapse Status: Acute Assessment and Plan: Likely secondary to acute illness and dehydration -patient had presyncopal symptoms prior to passing out -Echocardiogram from 2019 shows grade 1 diastolic dysfunction and normal systolic function. no further cardiac symptoms -he is not orthostatic -no further symptoms (3) Diabetes mellitus: Qualifiers: Diabetes mellitus type: type 2 Diabetes mellitus senior care insulin use: without senior care use Diabetes mellitus complication status: with hyperglycemia Qualified Code(s): E11.65 - Type 2 diabetes mellitus with hyperglycemia Code(s): E11.9 - Type 2 diabetes mellitus without complications Status: Acute Assessment and Plan: Last blood sugar 94, patient's appetite is decreased -hold hypoglycemic medications -continue sliding scale insulin (4) Morbid obesity: Code(s): E66.01 - Morbid (severe) obesity due to excess calories Status: Acute Assessment and Plan: Lifestyle and diet modification (5) Hypothyroidism: Qualifiers: Hypothyroidism type: acquired Qualified Code(s): E03.9 - Hypothyroidism, unspecified Code(s): E03.9 - Hypothyroidism, unspecified Status: Acute Assessment and Plan: Continue Synthroid -TSH within normal limits (6) Hypertensive urgency: Code(s): I16.0 - Hypertensive urgency Status: Acute Assessment and Plan: Resolved. Last bp 125/62. Headache resolved -continue home lisinopril and metoprolol. Subjective Date/time seen: 01/27/21 13:46 Interval history: Pt is a 70-year-old male here for PNA. Patient was seen today and states that he feels little better than yesterday. He continues to cough and is now coughing up sputum. He has not had any further fevers but he does have night sweats. He has not had any more lightheadedness or dizziness. He denies diarrhea, constipation, chest pain, or abdominal pain. at bedside and we reviewed the events that led to admission. He states that when he was at home he was not feeling well and had been sitting in the recliner for 2 days with fevers. He was not eating and drinking very well. He walked to the bathroom to urinate and while he was standing there he felt lightheaded and dizzy and called for his . No CP at this time. The came in and he was collapsing at his knees and she slowly sat him down. His eyes rolled back in the back of his head and he was not really responding until EMS arrived. He was doing better when he was laying flat but when they stood him up to get him on the gurney he lost consciousness again. Exam Narrative: General: Well developed well nourished patient in NAD HEENT: normocephalic, changes to his right neck consistent with previous tonsillar cancer treatment Neck: supple Neuro: Alert and oriented x4. Cranial nerves 2-12 intact. Equal strength the upper lower extremities 5/5 CV:RRR Resp: Crackles and coarse breath sounds bilaterally. No conversational dyspnea. No wheezing Abd: Soft, non distended. No pain to palpation. Positive bowel sounds Extremities: No lower extremity swelling, erythema or pain to palpation. Objective Data Vital Signs Vital Signs: Vital Signs - 24 hr 01/26/21 15:30 01/26/21 16:00 01/26/21 20:00 Temperature 97.8 F 98.2 F Pulse Rate 81 91 Respiratory Rate 16 18 Blood Pressure 112/59 L 135/58 L 187/81 H Pulse O
[2021-01-27 16:55] LABS: Glucose Point of Care 85 mg/dl (65-105)
[2021-01-27] MEDS: ENOXAPARIN 40 MG/0.4 ML SYRINGE SUB-Q (19:18)
[2021-01-27] MEDS: MELATONIN 5 MG TABLET PO (20:24)
[2021-01-28] VITALS (8 sets, daily range): BP systolic 97–156; BP diastolic 52–98; PULSE 69–88; RESP 18–24; TEMP 36.1–37.2; O2SAT 94–100
[2021-01-28] MEDS: KETOROLAC 15 MG/ML VIAL (*BKC) IV PUSH (00:56)
[2021-01-28 01:52] LABS: Vancomycin Trough < 5.0 ug/mL (10.0-20.0)
[2021-01-28] MEDS: LORATADINE 10 MG TABLET PO (06:25)
[2021-01-28] MEDS: LEVOTHYROXINE SODIUM 100 MCG TABLET 200 MCG PO (06:25)
[2021-01-28 06:31] LABS: Hematocrit 35.7 % (42.0-52.0); Hemoglobin 12.1 g/dL (14.0-18.0); Mean Corpuscular HGB Conc 33.9 g/dl (32-36); Mean Corpuscular Hemoglobin 27.7 pg (26-34); Mean Corpuscular Volume 81.7 fl (80-100); Mean Platelet Volume 10.4 fl (7.4-10.4); Platelet Count Result 163 k/mm3 (150-375); Red Blood Count 4.37 M/mm3 (4.6-6.20); Red Cell Distribution Width 13.6 % (11.5-14.5)
[2021-01-28 06:34] LABS: Glucose Point of Care 98 mg/dl (65-105)
[2021-01-28 07:01] LABS: Anion Gap 6 mmol/L (8-16); Blood Urea Nitrogen 23 mg/dL (9-20); CRP 19.1 mg/dL (<1.0); Calcium 8.4 mg/dL (8.4-10.2); Carbon Dioxide 31 mmol/L (22-30); Chloride 97 mmol/L (98-107); Estimated CRCL calculation 62 ml/min; Estimated Glomerular Filt Rate 55; Glucose 108 mg/dL (65-110); Magnesium 2.1 mg/dL (1.6-2.3); Potassium 3.8 mmol/L (3.4-5.0); Sodium 134 mmol/L (137-145)
[2021-01-28] MEDS: PANTOPRAZOLE 40 MG TABLET PO (08:11)
[2021-01-28] MEDS: lisinopriL 10 MG TABLET 30 MG PO (08:11)
[2021-01-28] MEDS: CYANOCOBALAMIN 1,000 MCG TABLET 1000 MCG PO (08:12)
[2021-01-28] MEDS: METOPROLOL SUCCINATE EXT REL 25 MG TABCR PO (08:12)
[2021-01-28 09:22] LABS: Glucose Point of Care 103 mg/dl (65-105)
[2021-01-28 12:43] LABS: Glucose Point of Care 162 mg/dl (65-105)
--- NOTE | 2021-01-28 16:24 | PM.IMPN ---
Progress Note: A&P Assessment and Plan (1) Multifocal pneumonia: Code(s): J18.9 - Pneumonia, unspecified organism Status: Acute Assessment and Plan: Patient's symptoms and CT findings consistent with PNA, most likely bacterial -sputum culture pending -Legionella and pneumococcal antigens pending -COVID and influenza is negative. Will check Legionella antigens -continue IV ceftriaxone and azithromycin. Coverage narrowed, previously on vancomycin and cefepime. -supportive care to include bronchodilators, expectorants, antipyretics, incentive spirometry (2) Near syncope: Code(s): R55 - Syncope and collapse Status: Acute Assessment and Plan: Likely secondary to acute illness and dehydration. He had presyncopal symptoms prior to episode -he has been rehydrated with IV fluids and has had no further symptoms -Echocardiogram from 2019 shows grade 1 diastolic dysfunction and normal systolic function. no further cardiac symptoms -he is not orthostatic -fall precautions implemented (3) Diabetes mellitus: Qualifiers: Diabetes mellitus type: type 2 Diabetes mellitus skilled nursing insulin use: without intermediate card tender use Diabetes mellitus complication status: with hyperglycemia Qualified Code(s): E11.65 - Type 2 diabetes mellitus with hyperglycemia Code(s): E11.9 - Type 2 diabetes mellitus without complications Status: Acute Assessment and Plan: A1c is 8.9. Blood sugars 107-160 today -glimepiride and pioglitazone on hold -continue Accu-Cheks, sliding scale insulin, hypoglycemic protocol (4) Morbid obesity: Code(s): E66.01 - Morbid (severe) obesity due to excess calories Status: Acute Assessment and Plan: Lifestyle and diet modification (5) Hypothyroidism: Qualifiers: Hypothyroidism type: acquired Qualified Code(s): E03.9 - Hypothyroidism, unspecified Code(s): E03.9 - Hypothyroidism, unspecified Status: Acute Assessment and Plan: TSH is within normal limits -continue levothyroxine (6) Hypertensive urgency: Code(s): I16.0 - Hypertensive urgency Status: Acute Assessment and Plan: Resolved. Last BP 152/60 -continue home lisinopril and metoprolol. -monitor BP trends closely Subjective Date/time seen: 01/28/21 16:24 Interval history: Date of service: 01/28/2021 Carlos Mckay is a 70-year-old male with history of type 2 diabetes mellitus, hypertension, hypothyroidism who is seen in follow-up for community-acquired pneumonia. He is starting to feel little bit better today. Shortness of breath has improved. He has cough productive of thick, creamy yellowish sputum. He also complains of sinus congestion and fullness in his right ear. He complains of postnasal drip that he thinks is causing him to cough more frequently. He denies CORDOVA. Feels he is able to take deeper breaths. He denies wheezing. No nausea, vomiting, fever, chills, dizziness, lightheadedness. Still feeling somewhat weak. Poor appetite. He has been having regular bowel movements. Denies diarrhea. No urinary symptoms. Review of Systems Review of Systems: All systems reviewed & are unremarkable except as noted in HPI and below Exam Narrative: Mr. Mckay is a well-nourished, well-appearing 70-year-old male who is lying semi recumbent in bed. He appears comfortable and is in NARD. Neuro: awake, alert and oriented x4, speech clear, no focal neuro deficits noted HEENMT: normocephalic, atraumatic, EOMI, sclerae anicteric, moist oral mucosa, tongue midline, nares patent Neck: supple, no lymphadenopathy Respiratory: Faint scattered rhonchi that do clear with cough, no wheezes or crackles, nonlabored breathing Cardio: regular rate, regular rhythm with S1-S2 Abdomen: nondistended, normoactive bowel sounds, soft, nontender to palpation Extremities: no edema, erythema, or tenderness to palpation, DP pulse
[2021-01-28 16:31] LABS: Glucose Point of Care 107 mg/dl (65-105)
[2021-01-28] MEDS: ENOXAPARIN 40 MG/0.4 ML SYRINGE SUB-Q (17:20)
[2021-01-28] MEDS: FLUTICASONE PROPIONATE 0.05% NA SPR 16 GM BTL (*BKC) 1 SPRAY NASAL (21:40)
[2021-01-28] MEDS: guaiFENesin 12 HR 600 MG TABCR PO (21:41)
[2021-01-28] MEDS: MELATONIN 5 MG TABLET PO (21:46)
[2021-01-28 22:14] LABS: Glucose Point of Care 97 mg/dl (65-105)
[2021-01-29 06:00] VITALS: BP 128/62; PULSE 76; RESP 16; TEMP 36.6; O2SAT 95
[2021-01-29] MEDS: LEVOTHYROXINE SODIUM 100 MCG TABLET 200 MCG PO (06:15)
[2021-01-29 06:17] LABS: Hematocrit 35.6 % (42.0-52.0); Hemoglobin 11.8 g/dL (14.0-18.0); Mean Corpuscular HGB Conc 33.1 g/dl (32-36); Mean Corpuscular Hemoglobin 26.9 pg (26-34); Mean Corpuscular Volume 81.3 fl (80-100); Mean Platelet Volume 9.8 fl (7.4-10.4); Platelet Count Result 168 k/mm3 (150-375); Red Blood Count 4.38 M/mm3 (4.6-6.20); Red Cell Distribution Width 13.3 % (11.5-14.5); White Blood Count 5.2 K/mm3 (4.5-10.0)
[2021-01-29 06:28] LABS: Anion Gap 6 mmol/L (8-16); Blood Urea Nitrogen 24 mg/dL (9-20); Calcium 8.4 mg/dL (8.4-10.2); Carbon Dioxide 29 mmol/L (22-30); Chloride 95 mmol/L (98-107); Estimated CRCL calculation 67 ml/min; Estimated Glomerular Filt Rate 60; Glucose 103 mg/dL (65-110); Potassium 4.1 mmol/L (3.4-5.0); Sodium 130 mmol/L (137-145)
[2021-01-29 08:52] LABS: Glucose Point of Care 97 mg/dl (65-105)
[2021-01-29 08:53] VITALS: PULSE 78
[2021-01-29] MEDS: LORATADINE 10 MG TABLET PO (08:53)
[2021-01-29] MEDS: guaiFENesin 12 HR 600 MG TABCR PO (08:53)
[2021-01-29] MEDS: FLUTICASONE PROPIONATE 0.05% NA SPR 16 GM BTL (*BKC) 1 SPRAY NASAL (08:53)
[2021-01-29] MEDS: PANTOPRAZOLE 40 MG TABLET PO (08:53)
[2021-01-29] MEDS: lisinopriL 10 MG TABLET 30 MG PO (08:53)
[2021-01-29] MEDS: METOPROLOL SUCCINATE EXT REL 25 MG TABCR PO (08:53)
[2021-01-29] MEDS: CYANOCOBALAMIN 1,000 MCG TABLET 1000 MCG PO (08:53)
[2021-01-29 12:31] LABS: Glucose Point of Care 128 mg/dl (65-105)
[2021-01-29 14:00] VITALS: BP 108/56; PULSE 75; RESP 16; TEMP 36.6; O2SAT 98
[2021-01-29 14:44] LABS: Creatinine Urine 111.6 mg/dL
[2021-01-29 14:51] LABS: Sodium Urine Random 51 meq/L
--- NOTE | 2021-01-29 15:56 | PM.DS ---
DS: Admitting Diagnosis Discharge Date 01/29/2021 Admitting Diagnosis Multifocal pneumonia DS: Discharge Diagnosis Discharge Diagnosis (1) Multifocal pneumonia: Code(s): J18.9 - Pneumonia, unspecified organism Status: Acute Assessment and Plan: Patient's symptoms and CT findings consistent with PNA, most likely bacterial. He was initially started on IV vancomycin and cefepime and coverage was narrowed to IV ceftriaxone azithromycin. He had symptomatic improvement with this. COVID influenza negative. Legionella pneumococcal antigens pending. Sputum culture was unable to be tested due to oropharyngeal contamination. Supportive care provided including bronchodilators, expectorants, incentive spirometry, fluticasone for nasal congestion. Continue p.o. azithromycin and cefdinir as an outpatient to complete full course of antibiotic therapy (2) Near syncope: Code(s): R55 - Syncope and collapse Status: Acute Assessment and Plan: Likely secondary to acute illness and dehydration. He had presyncopal symptoms prior to episode. He was rehydrated with IV fluids and had no further symptoms. Echocardiogram 2020 showed grade 1 diastolic dysfunction and normal systolic function. He did not have any further symptoms. He would not orthostatic. Fall precautions discussed. (3) Diabetes mellitus: Qualifiers: Diabetes mellitus type: type 2 Diabetes mellitus longitudinal float operator insulin use: without longitudinal float operator use Diabetes mellitus complication status: with hyperglycemia Qualified Code(s): E11.65 - Type 2 diabetes mellitus with hyperglycemia Code(s): E11.9 - Type 2 diabetes mellitus without complications Status: Acute Assessment and Plan: A1c is 8.9. Blood sugars were well controlled during hospitalization, manage with Accu-Cheks, sliding scale insulin, hypoglycemic protocol. Continue home glimepiride and pioglitazone (4) Morbid obesity: Code(s): E66.01 - Morbid (severe) obesity due to excess calories Status: Acute Assessment and Plan: Lifestyle and diet modification (5) Hypothyroidism: Qualifiers: Hypothyroidism type: acquired Qualified Code(s): E03.9 - Hypothyroidism, unspecified Code(s): E03.9 - Hypothyroidism, unspecified Status: Acute Assessment and Plan: TSH is within normal limits. Continue levothyroxine (6) Hypertensive urgency: Code(s): I16.0 - Hypertensive urgency Status: Acute Assessment and Plan: Resolved. Blood pressure was elevated on admission and improved at appropriate rate. Continue home lisinopril and metoprolol. Encouraged to monitor blood pressures at home and record for review by PCP (7) Hyponatremia: Code(s): E87.1 - Hypo-osmolality and hyponatremia Status: Acute Assessment and Plan: Sodium level slightly decreased, ranging from 130-134 during admission. May be related to acute illness. Repeat sodium levels in 1 week and follow-up with PCP. (8) Vitamin B12 deficiency: Code(s): E53.8 - Deficiency of other specified B group vitamins Status: Acute Assessment and Plan: Vitamin B12 noted to be slightly decreased, 254.0. Started on p.o. cyanocobalamin daily. DS: Summary Hospital Course Hospital Course: Date of admission: 01/25/2021 Date of discharge: 01/29/2021 Carlos Mckay is a 70-year-old male with history of type 2 diabetes mellitus, hypertension, hypothyroidism who presented to the emergency department on 01/25/2021 with complaints of feeling unwell for 3 days and noted to have syncopal episode at home. On presentation to the emergency department, his blood pressure was elevated at 180 7/89, he was mildly tachycardic and tachypneic, additional vital signs stable, he was afebrile, H&H mildly decreased with additional CBC and BMP unremarkable, sodium 133, lactic 1.6, influenza negative, CXR showed mild atelectasi
[2021-01-30 22:45] LABS: Pneumococcal Antigen Urine Not Detected (Not Detected)
[2021-01-31 20:10] LABS: Legionella pneumophila Ag Ur Not Detected (Not Detected)
== END 2021-01-29 16:15 | disposition home or self-care (01) | DRG 194 ==
LOC: ANHED 16:49 → ANH3MEDSUR 18:22
PROVIDERS: Emergency Medicine; Physician Assistant; Admitting Provider Family Medicine; Emergency Provider Emergency Medicine; PCP Family Medicine; Visit Provider Physician Assistant
DX: J15.9 Unspecified bacterial pneumonia (principal); Z68.41 Body mass index [BMI] 40.0-44.9, adult; E87.1 Hypo-osmolality and hyponatremia; E66.01 Morbid (severe) obesity due to excess calories; Z20.822 Contact with and (suspected) exposure to COVID-19; E86.0 Dehydration; E53.8 Deficiency of other specified B group vitamins; I16.0 Hypertensive urgency; I10 Essential (primary) hypertension; E11.65 Type 2 diabetes mellitus with hyperglycemia; R55 Syncope and collapse; E89.0 Postprocedural hypothyroidism; K21.9 Gastro-esophageal reflux disease without esophagitis; Z87.891 Personal history of nicotine dependence; Z79.82 Long term (current) use of aspirin; Z79.84 Long term (current) use of oral hypoglycemic drugs; Z85.29 Personal history of malignant neoplasm of other respiratory and intrathoracic organs; Z86.73 Personal history of transient ischemic attack (TIA), and cerebral infarction without residual deficits; Z90.2 Acquired absence of lung [part of]
CPT/HCPCS: 36415; 36600; 70450; 70491; 71045; 71046; 71250; 74176; 80048; 80076; 80202; 81001; 82570; 82607; 82728; 82746; 82805; 82948; 83605; 83615; 83735; 84300; 84443; 85025; 85027; 85055; 85610; 85730; 86140; 87040; 87070; 87081; 87205; 87449; 87804; 87880; 87899; 93005; 96361; 96365; 96372; 96375; 96376; 97161; 97165; 99285; A9270; C9803; G0378; J0360; J0456; J0692; J0696; J1650; J1815; J1885; J3370; J3475; J7030; J7060; J7120; Q9967; U0003; U0005

== ENCOUNTER → 2021-06-16 06:54 | Outpatient (CLI) | payer MEDICARE, OTHER, SELFPAY ==
--- NOTE | ~2021-06-16 | XR_ITS ---
EXAMINATION: XR chest 2V EXAM DATE: 06/16/2021 07:24 INDICATION: R06.2 - Wheezing . Cough, fever x 1.5 weeks, h/o squamous cell cancer of the tonsils, wit h lung mets [id number], prior lower lobe lung surgery x 2004, TECHNIQUE: Frontal and lateral projections of the chest obtained and reviewed. Comparison is made to prior examination from 01/26/2021. FINDINGS: Some ill-defined left basilar reticulonodular opacity suspected, could be left basilar pne umonia without confluent consolidation. The lungs are otherwise clear. There are no pleural effusion s. The cardiomediastinal silhouette is within normal limits. There is no pneumothorax suspected. T he bones and soft tissues are unremarkable. IMPRESSION: Suspect development of left basilar reticulonodular airspace disease, could be pneumoniti s from infectious etiology. Clinical correlation, consider one-month follow-up. Reviewed, dictated and finalized at location A. IMPRESSION: Suspect development of left basilar reticulonodular airspace diseas e, could be pneumonitis from infectious etiology. Clinical correlation, conside r one-month follow-up.
== END ==
PROVIDERS: PCP Family Medicine; Visit Provider Nurse Practitioner Family
DX: R06.2 Wheezing (principal)
CPT/HCPCS: 71046

== ENCOUNTER 2022-12-19 07:54 | Outpatient (CLI) | payer MEDICARE, OTHER, SELFPAY ==
[2022-12-19 08:28] LABS: Kit Draw Collected
== END 2022-12-19 07:55 | disposition home or self-care (01) ==
LOC: ANHGOSHLAB 07:57
PROVIDERS: PCP Family Medicine; Visit Provider Physician Assistant Medical
DX: E11.9 Type 2 diabetes mellitus without complications (principal); I10 Essential (primary) hypertension; K76.0 Fatty (change of) liver, not elsewhere classified; E87.1 Hypo-osmolality and hyponatremia; E03.9 Hypothyroidism, unspecified; N28.9 Disorder of kidney and ureter, unspecified; H93.19 Tinnitus, unspecified ear; E78.5 Hyperlipidemia, unspecified
CPT/HCPCS: 36415

== ENCOUNTER 2023-01-09 08:00 | Outpatient (CLI) | payer MEDICARE, OTHER, SELFPAY ==
[2023-01-09 13:09] LABS: Basophils Absolute Auto 0.1 K/mm3 (0.0-0.1); Basophils Percent Auto 1.2 % (0.2-1.2); Eosinophils Absolute Auto 0.2 K/mm3 (0-0.3); Eosinophils Percent Auto 4.8 % (0-4.4); Hematocrit 40.4 % (42.0-52.0); Hemoglobin 12.5 g/dL (14.0-18.0); Immature Granulocyte Absolute 0.01 K/mm3 (0.00-0.031); Immature Granulocyte Percent A 0.2 % (0-0.5); Lymphocytes Percent Auto 20.7 % (18.3-44.2); Mean Corpuscular HGB Conc 30.9 g/dl (32-36); Mean Corpuscular Hemoglobin 25.9 pg (26-34); Mean Corpuscular Volume 83.6 fl (80-100); Mean Platelet Volume 11.2 fl (7.4-10.4); Monocytes Absolute Auto 0.4 K/mm3 (0.1-0.6); Monocytes Percent Auto 8.5 % (2.6-8.5); Neutrophils Absolute Auto 3.1 K/mm3 (1.3-6.7); Neutrophils Percent Auto 64.6 % (45.5-73.1); Platelet Count Result 210 k/mm3 (150-375); Red Blood Count 4.83 M/mm3 (4.6-6.20); Red Cell Distribution Width 14.6 % (11.5-14.5); White Blood Count 4.8 K/mm3 (4.5-10.0)
[2023-01-09 13:25] LABS: Anion Gap 5 mmol/L (8-16); Blood Urea Nitrogen 21 mg/dL (9-20); Calcium 8.9 mg/dL (8.4-10.2); Carbon Dioxide 28 mmol/L (22-30); Chloride 101 mmol/L (98-107); Estimated Glomerular Filt Rate 50; Glucose 131 mg/dL (65-110); Potassium 4.8 mmol/L (3.4-5.0); Sodium 134 mmol/L (137-145)
== END 2023-01-09 08:01 | disposition home or self-care (01) ==
PROVIDERS: PCP Family Medicine; Visit Provider Physician Assistant Medical
DX: E53.8 Deficiency of other specified B group vitamins (principal); N28.9 Disorder of kidney and ureter, unspecified
CPT/HCPCS: 36415; 80048; 85025

== ENCOUNTER 2023-12-18 11:53 | Outpatient (CLI) | payer MEDICARE, OTHER, SELFPAY ==
--- NOTE | ~2023-12-18 | US_ITS ---
Renal-Bladder ultrasound Clinical History: Chronic kidney disease Technique: Real-time sonographic imaging of the kidneys and urinary bladder was performed. Findings: The right kidney measures 9.8 cm in length and the left kidney measures 10.5 cm. There is n o hydronephrosis or renal calculus identified. Renal cortical echogenicity is within normal limits. N o renal mass lesion is identified. The urinary bladder is moderately distended at the time of this exam. No intraluminal echoes are iden tified. No abnormal wall thickening is seen. Impression: Unremarkable ultrasound of the kidneys and urinary bladder. Reviewed, dictated and finalized at location M. Impression: Unremarkable ultrasound of the kidneys and urinary bladder.
== END 2023-12-18 11:54 | disposition home or self-care (01) ==
LOC: MICIMG 11:53
PROVIDERS: PCP Family Medicine; Visit Provider Nurse Practitioner Adult Health
DX: N18.9 Chronic kidney disease, unspecified (principal)
CPT/HCPCS: 76775

== ENCOUNTER 2024-07-15 08:11 | Outpatient (CLI) | payer MEDICARE, OTHER, SELFPAY ==
--- OUTSIDE RECORDS SUMMARY | 2024-07-15 08:18 | XMS_ITS | Clinical Summary ---
Author Organization [facility] Address [address] [place] [address] Care Team Providers Care Body Specialist Name Role Phone Darvin Riggins MD Primary Care Provider [phone] Allergies No known active allergies Medications doxycycline monohydrate 100 MG capsule Take 100 mg by mouth daily. For acne 0 Active levothyroxine 300 MCG tablet Take 300 mcg by mouth every morning. 0 Active sildenafil 20 MG tablet Take 20 mg by mouth daily as needed. 0 Active aspirin EC (ASPIRIN EC) 81 MG tablet Take 81 mg by mouth daily. Active gefitinib (IRESSA) 250 MG tablet Take 250 mg by mouth daily. Active lisinopril 30 MG tablet Take 30 mg by mouth daily. 0 Active metoprolol succinate ER 25 MG 24 hr tablet Take 25 mg by mouth daily. Active metFORMIN ER, MOD, 1000 MG 24 hr tablet Take 1,000 mg by mouth daily with breakfast. Active ONETOUCH ULTRA test strip 2 (two) times daily. test 0 Active Dapagliflozin Propanediol (FARXIGA) 5 MG Tab Take 5 mg by mouth daily. 1 Active pantoprazole EC 40 MG tablet Take 40 mg by mouth daily. 1 Active pioglitazone 15 MG tablet Take 15 mg by mouth daily. 1 Active levothyroxine 200 MCG tablet Take 200 mcg by mouth daily. 1 Active loratadine 10 MG tablet Take 10 mg by mouth daily. 1 Active amoxicillin-clav ulanate 875-125 MG tablet 2 (two) times daily. 1 Active METHYLPREDNISOLO NE, ALLEGRA, 4 MG tabletIndication s:Stiffness of finger joint of left hand FOLLOW PACKAGE DIRECTIONS 21 each 1 Active glimepiride 1 MG tablet Take 1 mg by mouth daily with breakfast. 1 Active metoclopramide 10 MG tablet TAKE 1 TABLET BY MOUTH EVERY 6 HOURS NEEDED FOR NAUSEA OR VOMITING 0 Active Active Problems No known active problems Immunizations Immunization Administration Dates Next Due Fluzone High Dose - >Age 65 (Prefilled Syringe) 01/08/2019 Influenza (Generic) 03/29/2013 Influenza Adult (Generic) 12/17/2019,12/25/2017 Tdap (Generic) 05/10/2012 Zoster (Zostavax) 16808 Unt/0.65Ml 03/20/2012 Family History Medical History Relation Comments No Known Problems Daughter 1 No Known Problems Daughter 2 Tuberculosis Father when i was 4 months old Cancer Mother colon Diabetes Mother Relation Status Comments Daughter 1 Alive Daughter 2 Alive Father Mother Social History Tobacco Use Types Packs/Day Years Used Date Smoking Tobacco: Former Cigarettes Q uit: 1996 Smokeless Tobacco: Never Tobacco Cessation:Counseling Given: No Alcohol Use Standard Drinks/Week Comments Not Currently 0 (1 standard drink = 0.6 oz pur e alcohol) social- very seldom. AUDIT-C Answer Date Recorded Q1: How often do you have a drink containing alc ohol? 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 Respiratory Rate 18 02/21/2020 1:35 PM VENDOR RELATIONSHIP MANAGER Oxygen Saturation 97% 07/22/2020 9:20 AM CDT Inhaled Oxygen Concentration - - Weight 117.8 kg (259 lb 12.8 oz) 07/22/2020 9:20 AM CDT Height 170.2 cm (5' 7 ) 07/22/2020 9:20 AM CDT Body Mass Index 40.69 07/22/2020 9:20 AM CDT Plan of Treatment Health Maintenance Due Date Last Done Comments Colorectal Cancer Screening Colonoscopy (10 Years) 1952 Hepatitis C 1970 Pneumococcal Vaccine: 50+ Years (1 of 1 - PCV) 2002 Zoster Vaccines (2 of 3) 05/15/2012 03/20/2012 RSV Immunization or 60+ Years (1 - Risk 60-74 years 1-dose series) 2012 Annual Medicare Wellness Visit 2017 DTaP, Tdap and Td Vaccines ( 2 - Td or Tdap) 05/10/2022 05/10/2012 COVID-19 Vaccine (3 - 2023-2 5 season) 2023 05/26/2020, 04/24/2020 Meningococcal B Vaccine Aged Out No l onger eligible based on patient's age to complete this topic Meningococcal Vaccine Aged Out No jun harriet eligible based on patient's age to complete this topic RSV Immunizations Under 20 Months Aged Out No longer eligible b ased on patient's age to complete this topic Insurance MED REPLACE [facility] [place] [address] [facility] Care Teams Body Specialist Relationship Specialty Start Date End Date Darvin Riggins MD [address] [place] [phone] PCP - General FAMILY PRACTICE 01/02/20
--- OUTSIDE RECORDS SUMMARY | 2024-07-15 08:18 | XMS_ITS ---
Author Organization 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 Past Treatment and Therapy Plans Oncology Chemotherapy Treatment Plan Name Start Date Discontinue Date Treatment Medications Discontinue Reason Plan Provider Cycles Compassionate Use Regimen - [place] ICAP - [id number] - Gefitinib 04/18/2018 12/09/2020 [facility] gefitinib (IRESSA) (/ [id number]) Patient Preference Timbo Vegas MD 8 of 10 cycles completed Lifetime Dose Tracking * Chemical Lifetime Dose Automatic Entry Manual Entr y Fluoro Time 9 minutes 9 minutes 0 minutes DLP 2,451 mGycm 2,451 mGycm 0 mGycm
--- OUTSIDE RECORDS SUMMARY | 2024-07-15 08:18 | XMS_ITS | Clinical Summary ---
Author Organization [facility] Address [address] [place] [address] Care Team Providers Care Animal Scientist Name Role Phone Darvin Riggins MD Primary Care Provider + [phone] Allergies No known active allergies Medications aspirin 81 mg chewable tablet Acti ve lisinopriL (PRINIVIL,ZESTR IL) 30 mg tabletIndicatio ns:hypertension Take 1 tablet (30 mg total) by mouth daily Active metoprolol XL (TOPROL-XL) 25 mg extended release tabletIndicatio ns:hypertension Take 1 tablet (25 mg total) by mouth daily Active OneTouch Ultra Blue Test Strip strip TEST TWICE DAILY [address] (PROTONIX) 40 mg EC tablet TAKE 1 TABLET BY MOUTH DAILY FOR 4 WEEKS 0 Active pioglitazone (ACTOS) 15 mg tablet Take 1 tablet (15 mg total) by mouth daily 1 Active levothyroxine (SYNTHROID) 200 mcg tablet Take 1 tablet (200 mcg total) by mouth daily 1 Active glipiZIDE XL (GLUCOTROL XL) 2.5 mg 24 hr tablet 2 Active loratadine (CLARITIN) 10 mg tablet Take 1 tablet (10 mg total) by mouth daily 90 tablet 3 2 Active cyanocobalamin (Vitamin B-12) 1,000 mcg tabletIndicatio ns:Prevention of Vitamin B12 Deficiency Take 1 tablet (1,000 mcg total) by mouth daily Active tadalafiL (CIALIS) 20 mg tablet Take 1 tablet (20 mg total) by mouth once as needed for erectile dysfunction for up to 1 dose 30 tablet 3 4 Active Active Problems Problem Noted Date Diagnosed Date Dizziness 02/24/2020 Essential hypertension 02/24/2020 Diastolic dysfunction 02/24/2020 Family history of colon cancer in mother 019 Esophageal dysphagia 10/22/2018 Overview (10/22/2018): Added automatically from request for surgery [id number] Cellulitis of face 09/20/2018 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 15 History of malignant neoplasm of head and neck 0 05/10/2012 Overview (06/15/2016): History of cancer tonsil Pseudogout 05/10/2012 Overview (06/15/2016): Pseudogout Temporary cerebral vascular dysfunction 05/10/19 13 Overview (06/16/2016): TIA (transient ischemic attack) Immunizations Immunization Administration Dates Next Due Influenza, Quad, Adjuvantated, Intramuscular 08/2019 Influenza, Quadrivalent, Esther l Culture-based MDCK, Preservative Free, Antibiotic Free, Intramuscular 12/25/2017 Influenza, Split 03/29/2013 Influenza, Trivalent, High D ose, Split, Preservative Free, Intramuscular 01/08/2019 Influenza, Unspecified 12/17/2019 Pfizer SARS-CoV-2 Monovalent Vaccination (12+ Yrs) PURPLE 05/26/2020,04/24/2020 Tdap 05/10/2012 ZOSTER LIVE 03/13/2012 Surgical History Surgery Date Site/Laterality Comments OTHER SURGICAL HISTORY 03/13/2011 - 03/12/2012 : Resection R. tonsil & neck. for CA OTHER SURGICAL HISTORY Thyroidectomy - partial IR FINE NEEDLE ASPIRATION W IMAGE GUIDANCE 04/15/2013 N/A COLONOSCOPY UPPER GASTROINTESTINAL ENDOSCOPY Medical History Medical History Date Comments Hypothyroidism 2011 Hypothyroidism Hx Other Medical 2011 Hyperglycemia Hx Other Medical 2002 right tonsillar cancer Hx Other Medical pseudogout Hx Other Medical renal calculi Hx Other Medical 2011 TIA Hx Other Medical 2003 Lung sugery to remove mets Disorder of thyroid Thyroid dise ase Difficult airway Dysphagia Hypertension TIA (transient ischemic attack) 2013 GERD (gastroesophageal reflux disease) Kidney stone TIA (transient ischemic attack) Cataract Lung cancer (HCC) Metastatic carcinoid tumor (HCC) Diabetes mellitus (HCC) Family History Medical History Relation Name Comments Other Father Other; Tuberculosis Father Tuberculosis; C ause of : Tuberculosis Cancer Mother Mom Colon cancer Mother Mom Diabetes Mother Mom Diabetes mellit us; Heart attack Mother Mom Myocardial Infa rction; Cause of : Myocardial Infarction Heart disease Mother Mom Heart disease; Relation Name Status Comments Father Mother Mom (Age 68) Social History Tobacco Use Types Packs/Day Years Used Date Smoking Tobacco: Former Cigarettes Q uit: 1996 Smokeless Tobacco: Never Tobacco Cessation:Counseling Given: Not Answered Alcohol Use Standard Drinks/Week Comments Yes 0 (1 standard drink = 0.6 oz pur e alcohol) Very rare Sex and Gender Information Value Date Recorded Sex Assigned at Not on file Legal Sex Male 12:30 AM SCALE TESTER Gender Identity Male 02/18/2020 8:31 AM SCALE TESTER Sexual Orientation Straight 09/18/2018 11 :28 PM CDT Obstetrics History Last Filed Vital Signs Vital Sign Reading Time Taken Comments Blood Pressure 165/80 12/05/2023 8:24 AM CDT Pulse 75 12/05/2023 8:24 AM CDT Temperature 36.5 C (97.7 F) 12/05/2023 8:24 AM CDT Respiratory Rate 18 12/05/2023 8:24 AM CDT Oxygen Saturation 99% 12/05/2023 8:24 AM CDT Inhaled Oxygen Concentration - - Weight 130.2 kg (287 lb) 12/06/2023 10:24 AM CDT Height 172.7 cm (5' 8 ) 12/06/2023 10:24 AM CDT Body Mass Index 43.64 12/06/2023 10:24 AM CDT Plan of Treatment Health Maintenance Due Date Last Done Comments Depression Screening 1950 Fall Risk Assessment 1950 Hepatitis C Screening 1950 Hepatitis B Screening 1970 Pneumococcal vaccine 65+ (1 of 2 - PCV) 09/05/1971 Zoster Vaccine (1 of 2) 05/08/2012 03/13/2012 Abdominal Aortic Aneurysm (A AA) Screen 2017 04/21/2017 Well Visit 65+ 2017 Covid-19 Vaccine (3 - Pfizer risk series) 06/23/2020 05/26/2020, 04/24/2020 DTaP/Tdap/Td Vaccine (2 - Td or Tdap) 05/10/2022 05/10/2012 Influenza Vaccine (#1) 2023 0, 12/17/2019, 01/08/2019, Additional history exists Colon Cancer Screening-Colonoscopy 11/13/2028 11/13/2018 Colon Cancer Screening-CT Colonography Discontinued 11/13/2018 Colon Cancer Screening-DNA Stool Discontinued 11/14/19 Colon Cancer Screening-FIT Discontinued 11/13/2018 Colon Cancer Screening-Sigmoidoscopy Discontinued 11/13/2018 Prostate Cancer Screening-PSA Discontinued , 10/14/2020, 10/12/2019, Additional history exists Procedures Procedure Name Priority Date/Time Associated Diagnosis Comments PSA SCREEN Routine 11/21/2023 7:59 AM CDT Elevated PSA COLONOSCOPY 11/13/2018 10:[address] ABDOMEN PELVIS W CONTRAST Routine 04/21/2017 9:34 PM SCALE TESTER from Last 3 Months or Most Recently Relevant to Health Maintenance Results * PSA screen (11/21/2023 7:59 AM CDT) PSA-Total 4.97 <=6.20 ng/mL Comment: Interpretive Data AGE SEX REFERENCE INTERVAL 0 minutes-150 years Female None 0 minutes-49 years Male None 50-59 years Male 0-3.90 60-69 years Male 0-5.40 70-79 years Male 0-6.20 80-150 years Male 0-6.20 The Yolanda PSA Total assay procedure was used. Results from different manufacturers or methods may not be comparable. Serial testing should be performed using the same method. Current interpretive data last revised 21. Blood 11/21/2023 7:59 AM CDT 11/21/2023 7:02 PM CDT Donny Zendejas NP LAB BLOOD [place]AB[place] [address] [address] [place] [address] * COLONOSCOPY (11/13/2018 10:54 AM CDT) Anatomical Region Laterality Modality Other Narrative Procedure Note Daisy Woods MD - 11/13/2018 10:54 AM CDT [facility] Patient Name: Carlos Mckay Procedure Date: 11/13/2018 10:54 AM Date of : 1950 Admit Type: Outpatient Age: 68 Gender: Male Attending MD: Daisy oWods M.D. Room: [facility] ENDOSCOPY ROOM 9 Note Status: Finalized Procedure: Colonoscopy Indications: Family history of colon cancer in a first-degree relative (mother, 50's), Last colonoscopy over 5years ago Referring MD: Darvin Riggins M.D. Providers: Daisy Woods M.D. Medicines: Monitored Anesthesia Care Complications: No immediate complications. Estimated Blood Loss: Estimated blood loss: none. Procedure: Pre-Anesthesia Assessment: - The risks and benefits of the procedure and the sedation options and risks were discussed with the patient. All questions were answered and informed consent was obtained. - Immediately prior to administration ofmedications, the patient was re-assessed for adequacy to receive sedatives. The benefits, risks and alternatives of theprocedure and sedation were discussed and informed consent was obtained. All questions were answered. Please referto the signed informed consent document in the medical record. The scope was passed under direct vision.The [id number] endoscope was introduced throughthe anus and advanced to the cecum, identified by appendiceal orifice and ileocecal valve. The patient tolerated the procedure well. The quality of thebowel preparation was evaluated using the BBPS (BostonBowel Preparation Scale) with scores of: Right Colon = 1 (portion of mucosa seen, but other areas not wellseen due to staining, residual stool and/or opaqueliquid), Transverse Colon = 1 (portion of mucosa seen, butother areas not well seen due to staining, residual stool and/or opaque liquid) and Left Colon = 2 (minoramount of residual staining, small fragments of stooland/or opaque liquid, but mucosa seen well). The total BBPS score equals 4. The quality of the bowel preparation was inadequate. The colonoscopy was technically difficult and complex. The bowel preparation usedwas GoLYTELY. The quality of the bowel preparation was inadequate. Findings: Advancement of the colonoscope to the cecum was technically difficult due to redundant colon and looping. The colonoscope was advanced tothe cecum with the use of abdominal pressure and with repositioning the patient onto his back. High residue seed content was found throughout the colon, but most notably in the ascending colon and cecum. This was unable to becleared with irrigation and suctioning and prevented adequate visualizationof the colonic lumen. No polyps were visualized, but visualization of the lumen wasinadequate due to retained high residue food content. Impression: - Inadequate prep due to high residue food contentthat was unable to be removed with irrigation andsuctioning - Technically difficult colonoscopy due to redundant colon and looping - No polyps were visualized, but visualization ofthe lumen was inadequate due to retained high residuefood content Recommendation: - Obtain CT colonography within next 3 months. If negative for polyps, repeat CT colonography again in5 years. Would favor CT colonography for colon cancer screening due to technical difficulty of colonoscopy and lack of visualized polyps. Attending Participation: I personally performed the entire procedure. Electronically signed by Daisy Woods MD Daisy Woods M.D. 11/13/2018 11:50:59 AM . Number of Addenda: 0 Note Initiated On: 11/13/2018 10:54 AM Recognized by the [employer] for promoting quality in endoscopy us Daisy Woods MD ENDOSCOPY PROCEDURE S Final Result * CT Abdomen Pelvis W Contrast (04/21/2017 9:34 PM SCALE TESTER) Anatomical Region Laterality Modality Body N/A Computed Tomogra phy 04/21/2017 9:34 PM SCALE TESTER Narrative 04/21/2017 10:49 PM SCALE TESTER Rodolfo GRIFFITHS M.D. FINAL REPORT The radiology attending physician has personally reviewed this study, and has reviewed and/or edited this written report and agrees with it. ACC# Date Time Exam [id number] Apr 21, 2017 15:34:[id number] Chest with contrast [id number] Apr 21, 2017 15:34:[id number] Abd & Pelvis with cont EXAMINATION: Computed tomography of the chest, abdomen and pelvis with intravenous contrast HISTORY: 66-year-old man with a history of metastatic tonsillar squamous cell carcinoma, history of metastatic pulmonary nodules status post wedge resection TECHNIQUE: Transaxial computed tomographic images of the chest, abdomen and pelvis were obtained with intravenous contrast according to the standard protocol after the uneventful administration of 100 mL Opti-Ray 350 intravenous contrast. COMPARISON: Prior CT dated 03/03/2014 FINDINGS: Chest: There are stable postsurgical changes of wedge resection, pleural thickening, and scarring in the right lower lobe. Diffuse peripheral subpleural reticulation is unchanged. There is mildly prominent septal line thickening at the lung bases consistent with mild pulmonary edema. There are no suspicious pulmonary nodules and no pleural effusion, and no pneumothorax. The heart size is normal and there is no pericardial effusion. There are coronary artery calcifications and calcified atherosclerotic plaques in the aorta. The aorta and great vessels are normal. There are scattered subcentimeter supraclavicular, mediastinal, and axillary lymph nodes, none of which are pathologically enlarged. Abdomen/Pelvis: The liver is normal in size and contour. There is an unchanged small hypoattenuating lesion in the caudate lobe compatible with a hepatic cyst. The gallbladder is normal. There is no intrahepatic or extrahepatic biliary duct dilation. The pancreas is unremarkable. The spleen is normal. There is a small splenule anterior to the main body of the spleen. The adrenal glands are normal. The kidneys are symmetrically enhancing without hydronephrosis or focal lesion. There are no gastric or duodenal masses. The colon and small bowel are normal in course and caliber. The appendix is normal. There is minimal nonspecific stranding in the mesentery. The urinary bladder is normal. The prostate is enlarged. There is no suspicious abdominal, retroperitoneal, or pelvic lymphadenopathy. Bone windows demonstrate unchanged sclerosis of the visualized lower cervical spine likely related to radiation therapy, an unchanged sclerotic focus in the anterior right 3rd rib, and a new sclerotic focus at the anterior right clavicular head that is favored to be degenerative. IMPRESSION: 1. Stable postsurgical changes of pleural thickening, and scarring in the right lower lobe. No suspicious pulmonary nodules. 2. Mild septal line thickening at the lung bases compatible with mild pulmonary edema. 3. No evidence of metastatic disease in the abdomen or pelvis. 4. New sclerotic focus at the anterior right clavicular head, which is favored to be degenerative in etiology. Electronically signed by: Lucinda Kee M.D. Requested By: NANI MORENO M.D. Dictated By: KRISSY ESPINO M.D. on Apr 21 2017 4:01P This document has been electronically signed by: LUCINDA KEE M.D. on Apr 21 2017 4:46P [id number] GRIFFITHS M.D. FINAL REPORT The radiology attending physician has personally reviewed this study, and has reviewed and/or edited this written report and agrees with it. Attending: NANI MORENO Requesting: NANI MORENO Requesting Fax: Attending Fax: Attending ID: [id number] Requesting ID: [id number] Report To 1 ID: [id number] Report To 1 Name: , Report To 1 FAX: NextGen Order #: Procedure Note Miscellaneous, Not In File - 04/21/2017 LUCINDA KEE M.D. KRISSY ESPINO M.D. FINAL REPORT The radiology attending physician has personally reviewed this study, and has reviewed and/or edited this written report and agrees with it. ACC# Date Time Exam [id number] Apr 21, 2017 15:34:[id number] Chest with contrast [id number] Apr 21, 2017 15:34:[id number] Abd & Pelvis with cont EXAMINATION: Computed tomography of the chest, abdomen and pelvis with intravenous contrast HISTORY: 66-year-old man with a history of metastatic tonsillar squamous cell carcinoma, history of metastatic pulmonary nodules status post wedge resection TECHNIQUE: Transaxial computed tomographic images of the chest, abdomen and pelvis were obtained with intravenous contrast according to the standard protocol after the uneventful administration of 100 mL Opti-Ray 350 intravenous contrast. COMPARISON: Prior CT dated 03/03/2014 FINDINGS: Chest: There are stable postsurgical changes of wedge resection, pleural thickening, and scarring in the right lower lobe. Diffuse peripheral subpleural reticulation is unchanged. There is mildly prominent septal line thickening at the lung bases consistent with mild pulmonary edema. There are no suspicious pulmonary nodules and no pleural effusion, and no pneumothorax. The heart size is normal and there is no pericardial effusion. There are coronary artery calcifications and calcified atherosclerotic plaques in the aorta. The aorta and great vessels are normal. There are scattered subcentimeter supraclavicular, mediastinal, and axillary lymph nodes, none of which are pathologically enlarged. Abdomen/Pelvis: The liver is normal in size and contour. There is an unchanged small hypoattenuating lesion in the caudate lobe compatible with a hepatic cyst. The gallbladder is normal. There is no intrahepatic or extrahepatic biliary duct dilation. The pancreas is unremarkable. The spleen is normal. There is a small splenule anterior to the main body of the spleen. The adrenal glands are normal. The kidneys are symmetrically enhancing without hydronephrosis or focal lesion. There are no gastric or duodenal masses. The colon and small bowel are normal in course and caliber. The appendix is normal. There is minimal nonspecific stranding in the mesentery. The urinary bladder is normal. The prostate is enlarged. There is no suspicious abdominal, retroperitoneal, or pelvic lymphadenopathy. Bone windows demonstrate unchanged sclerosis of the visualized lower cervical spine likely related to radiation therapy, an unchanged sclerotic focus in the anterior right 3rd rib, and a new sclerotic focus at the anterior right clavicular head that is favored to be degenerative. IMPRESSION: 1. Stable postsurgical changes of pleural thickening, and scarring in the right lower lobe. No suspicious pulmonary nodules. 2. Mild septal line thickening at the lung bases compatible with mild pulmonary edema. 3. No evidence of metastatic disease in the abdomen or pelvis. 4. New sclerotic focus at the anterior right clavicular head, which is favored to be degenerative in etiology. Electronically signed by: Lucinda Kee M.D. Requested By: NANI MORENO M.D. Dictated By: KRISSY ESPINO M.D. on Apr 21 2017 4:01P This document has been electronically signed by: LUCINDA KEE M.D. on Apr 21 2017 4:46P [id number] GRIFFITHS M.D. FINAL REPORT The radiology attending physician has personally reviewed this study, and has reviewed and/or edited this written report and agrees with it. Attending: NANI MORENO Requesting: NANI MORENO Requesting Fax: Attending Fax: Attending ID: [id number] Requesting ID: [id number] Report To 1 ID: [id number] Report To 1 Name: , Report To 1 FAX: NextGen Order #: Nani Moreno MD IM CT PROCEDURES Final Res ult from Last 3 Months or Most Recently Relevant to Health Maintenance Insurance Dr[employer]ET MEDICARE [facility] MEDICARE ADVANTAGE [facility] MEDICARE Address: [address] [address] [place] [address] [facility] [employer] MEDICARE Advance Directives For more information, please contact: [phone] * Full Code (Latest Code Status on File) Date Activated Date Inactivated Comments 01/04/2018 2:53 PM 01/04/2018 6:54 PM Care Teams Animal Scientist Relationship Specialty Start Date End Date Darvin Riggins MD PCP - General 06/20/16
--- OUTSIDE RECORDS SUMMARY | 2024-07-15 08:18 | XMS_ITS | Encounter Summary ---
Author Organization [facility] Address Formerly [facility] [place] [address] Care Team Providers Care Telephone Directory Deliverer Name Role Phone Darvin Riggins MD Primary Care Provider [phone] Encounter Details Date Type Department Care Team (Late st Contact Info) Description 02/10/2020 Prep for Procedure [facility] [address] [place] [address] Jeremie Ratliff MD [address] [place] [id number] Social History Tobacco Use Types Packs/Day Years Used Date Smoking Tobacco: Former Cigarettes Q uit: 1996 Smokeless Tobacco: Never Alcohol Use Standard Drinks/Week Comments Yes 0 (1 standard drink = 0.6 oz pur e alcohol) social AUDIT-C Answer Date Recorded Q1: How often do you have a drink containing alc ohol? Monthly or less 01/02/2020 Average Number of Drinks Not on file 020 Frequency of Binge Drinking Not on file 12/12 Sex and Gender Information Value Date Recorded Sex Assigned at Not on file Legal Sex Male 10:49 AM CDT Gender Identity Not on file Sexual Orientation Not on file COVID-19 Exposure Response Date Recorded In the last month, have you been in contact with someone who was confirmed or suspected to have Coronavirus / COVID-19? No / Unsure 01/30/2020 8:46 AM HEAD GAUGE UNIT OPERATOR documented as of this encounter Plan of Treatment Not on file documented as of this encounter Visit Diagnoses Diagnosis Preop testing- Primary Preoperative examination, unspecified documented in this encounter Additional Health Concerns Infection Onset Date Last Indicated Resolved Time COVID-19 Rule Out 02/18/2020 02/18/2020 02/19/2020 8:42 PM HEAD GAUGE UNIT OPERATOR COVID-19 Rule Out 03/07/2020 03/07/2020 03/08/2020 3:36 PM HEAD GAUGE UNIT OPERATOR documented as of this encounter Care Teams Telephone Directory Deliverer Relationship Specialty Start Date End Date Darvin Riggins MD [address] [place] [address] PCP - General FAMILY PRACTICE 01/02/20 documented as of this encounter
--- OUTSIDE RECORDS SUMMARY | 2024-07-15 08:18 | XMS_ITS | Referral Summary ---
Author Organization [facility] Address [address] [place] [address] Care Team Providers Care Center Medical And Lab Director Name Role Phone Darvin Riggins MD Primary Care Provider + [phone] Allergies No known active allergies Medications aspirin [...] (10/22/2018): Added automatically from request for surgery [id number] Cellulitis of face 09/20/2018 Metastatic cancer to [...] PURPLE 05/26/2020,04/24/2020 Tdap 05/10/2012 ZOSTER LIVE 03/13/2012 Social History Tobacco Use Types Packs/Day Years Used Date Smoking Tobacco: Former Cigarettes Q uit: 1996 Smokeless Tobacco: Never Tobacco Cessation:Counseling Given: Not Answered Alcohol Use Standard Drinks/Week Comments Yes 0 (1 standard drink = 0.6 oz pur e alcohol) Very rare Sex and Gender Information Value Date Recorded Sex Assigned at Not on file Legal Sex Male 12:30 AM OCULAR CARE TECHNOLOGIST Gender Identity Male 02/18/2020 8:31 AM OCULAR CARE TECHNOLOGIST Sexual Orientation Straight 09/18/2018 11 :28 PM CDT Last Filed Vital Signs Vital Sign Reading [...] 12/06/2023 10:24 AM CDT Plan of Treatment Not on file Procedures Procedure Name Priority Date/Time Associated Diagnosis Comments PSA SCREEN Routine 11/21/2023 7:59 AM CDT Elevated PSA COLONOSCOPY 11/13/2018 10:[address] ABDOMEN PELVIS W CONTRAST Routine 04/21/2017 9:34 PM OCULAR CARE TECHNOLOGIST from Last 3 Months or Most Recently [...] NP LAB BLOOD ORDERABLES F inal Result CALLI [id number] Magdaleno [place] [address] * COLONOSCOPY (11/13/2018 10:54 AM CDT) Anatomical Region Laterality Modality Other Narrative Procedure Note Daisy Woods MD - 11/13/2018 10:54 AM CDT [facility] ENDOS[facility] Patient Name: Carlos Mckay Procedure Date: 11/13/2018 10:54 AM Date of : 1950 Admit Type: Outpatient Age: 68 Gender: Male Attending MD: Daisy Woods M.D. Room: [facility] ENDOSCOPY ROOM 9 Note Status: Finalized Procedure: [...] The scope was passed under direct vision.The CF [id number] endoscope was introduced throughthe anus and advanced [...] On: 11/13/2018 10:54 AM Recognized by the [place] [employer] for promoting quality in endoscopy us Daisy Woods MD ENDOSCOPY PROCEDURE S Final Result * CT Abdomen Pelvis W Contrast (04/21/2017 9:34 PM OCULAR CARE TECHNOLOGIST) Anatomical Region Laterality Modality Body N/A Computed Tomogra phy 04/21/2017 9:34 PM OCULAR CARE TECHNOLOGIST Narrative 04/21/2017 10:49 PM OCULAR CARE TECHNOLOGIST Rodolfo GRIFFITHS M.D. FINAL REPORT The radiology attending physician has personally reviewed this study, and has reviewed and/or edited this written report and agrees with it. ACC# Date Time Exam [id number] Apr 21, 2017 15:34:[id number] Chest with contrast [id number] Apr 21, 2017 15:34:[id number] Abd & Pelvis with cont EXAMINATION: [...] KEE M.D. on Apr 21 2017 4:46P [id number] GRIFFITHS M.D. FINAL REPORT The radiology attending physician has personally reviewed this study, and has reviewed and/or edited this written report and agrees with it. Attending: NANI MORENO Requesting: NANI MORENO Requesting Fax: Attending Fax: Attending ID: [id number] Requesting ID: [id number] Report To 1 ID: [id number] Report To 1 Name: , Report To 1 FAX: NextGen Order #: Procedure Note Miscellaneous, Not In File - 04/21/2017 LUCINDA KEE M.D. KRISSY ESPINO M.D. FINAL REPORT The radiology attending physician has personally reviewed this study, and has reviewed and/or edited this written report and agrees with it. ACC# Date Time Exam [id number] Apr 21, 2017 15:34:[id number] Chest with contrast [id number] Apr 21, 2017 15:34:[id number] Abd & Pelvis with cont EXAMINATION: [...] KEE M.D. on Apr 21 2017 4:46P [id number] GRIFFITHS M.D. FINAL REPORT The radiology attending physician has personally reviewed this study, and has reviewed and/or edited this written report and agrees with it. Attending: NANI MORENO Requesting: NANI MORENO Requesting Fax: Attending Fax: Attending ID: [id number] Requesting ID: [id number] Report To 1 ID: [id number] Report To 1 Name: , Report To 1 FAX: NextGen Order #: Nani Moreno MD IMG CT PROCEDURES Final Res ult from Last 3 Months or Most Recently Relevant to Health Maintenance Insurance Rad FORMERLY [facility] MEDICARE [facility] MEDICARE Address: [facility] [id number] [place] [address] [facility] MEDICARE ADVANTAGE [facility] MEDICARE Address: [facility] [id number] [place] [address] FOR LIFE [employer] MEDICARE Advance Directives For more information, please contact: [phone] * Full Code (Latest Code Status on File) Date Activated Date Inactivated Comments 01/04/2018 2:53 PM 01/04/2018 6:54 PM Care Teams Center Medical And Lab Director Relationship Specialty Start Date End Date Darvin Riggins MD PCP - General 06/20/16
--- OUTSIDE RECORDS SUMMARY | 2024-07-15 08:18 | XMS_ITS | Encounter Summary ---
Author Organization [facility] Address [facility] [place] [address] Care Team Providers Care Recording Studio Internship Name Role Phone Darvin Riggins MD Primary Care Provider [phone] Encounter Details Date Type Department Care Team (Late st Contact Info) Description 02/21/2020 Prep for Procedure [facility]-Ad[facility] [address] eJremie Ratliff MD [address] [place] [address] [id number] Social History Tobacco Use Types Packs/Day Years Used Date Smoking Tobacco: Former Cigarettes Q uit: 1996 Smokeless Tobacco: Never Alcohol Use Standard Drinks/Week Comments Not Currently [...] have Coronavirus / COVID-19? No / Unsure 02/21/2020 6:48 AM FOIL OPERATOR documented as of this encounter Plan of Treatment Not on file documented as of this encounter Results * PRE-SURGICAL/PRE-PROCEDURE CORONAVIRUS (COVID 19) (03/07/2020 10:00 AM FOIL OPERATOR) CORONAVIRUS SARS COV 2 PCR (RESP) NOT DETECTED NOT DETECTED 03/08/2020 3:35 PM FOIL OPERATOR [facility] Comment: A Not Detected (negative) test result for this test means that SARS- CoV-2 RNA was not present in the specimen above the limit of detection. A negative result does not rule out the possibility of COVID-19 and should not be used as the sole basis for treatment or patient management decisions. If COVID-19 is still suspected, based on exposure history together with other clinical findings, re-testing should be considered in consultation with public health authorities. Laboratory test results should always be considered in the context of clinical observations and epidemiological data in making a final diagnosis and patient management decisions. Please review the Fact Sheets and FDA authorized labeling available for health care providers and patients using the following websites: https://www.Lang Ma.Kayentis/home/Covid-19/HCP/[facility]/fact- sheet.html https://www.Lang Ma.Kayentis/home/Covid-19/Patients/ [facility]/fact-sheet.html This test has been authorized by the FDA under an Emergency Use Authorization (EUA) for use by authorized laboratories. Due to the current public health emergency, [facility] is receiving a high volume of samples from a wide variety of swabs and media for COVID-19 testing. In order to serve patients during this public health crisis, samples from appropriate clinical sources are being tested. Negative test results derived from specimens received in non-commercially manufactured viral collection and transport media, or in media and sample collection kits not yet authorized by FDA for COVID-19 testing should be cautiously evaluated and the patient potentially subjected to extra precautions such as additional clinical monitoring, including collection of an additional specimen. Methodology: Nucleic Acid Amplification Test (NAAT) includes RT-PCR or TMA Additional information about COVID-19 can be found at the [facility] website: [email or web address].Kayentis/Covid19. Test performed at [facility] [address] [address] [place] [address] Director: ODETTE ABARCA DO,MPH FIRST TEST NO 03/07/2020 12:13 PM FOIL OPERATOR [facility] EMPLOYED IN HEALTHCARE NO 03/07/2020 12:13 PM [facility] SYMPTOMATIC DEFINED BY CDC NO 03/07/2020 12:13 PM [facility] DATE OF SYMPTOM ONSET NO 03/07/2020 12:23 PM [facility] HOSPITALIZATION STATUS NO 03/07/2020 12:13 PM [facility] PATIENT IN ICU NO 03/07/2020 12:13 PM [facility] RESIDENT OF [facility] NO 03/07/2020 12:13 PM [facility] NO 03/07/2020 12:23 PM [facility] PATIENT'S RACE WHITE OR 03/07/2020 12:13 PM [facility] ETHNICITY NONHISPANIC 03/07/2020 12:13 PM [facility] SOURCE (QST) NASOPHARYNGEAL SWAB 03/07/2020 12:13 PM [facility] NASOPHARYNGEAL SWAB / Unknown 03/07/2020 10:00 AM FOIL OPERATOR us Jeremie Ratliff MD MICROBIOLOGY - GENERAL ORDERABL ES Final Result [facility] [address] [place] [address], [facility] [address] [place] [address], * PRE-SURGICAL/PRE-PROCEDURE CORONAVIRUS (COVID 19) (02/18/2020 10:45 AM FOIL OPERATOR) CORONAVIRUS SARS COV 2 PCR (RESP) NOT DETECTED NOT DETECTED 02/19/2020 8:41 PM FOIL OPERATOR [facility] Comment: A Not Detected (negative) test result for this test means that SARS- CoV-2 RNA was not present in the specimen above the limit of detection. A negative result does not rule out the possibility of COVID-19 and should not be used as the sole basis for treatment or patient management decisions. If COVID-19 is still suspected, based on exposure history together with other clinical findings, re-testing should be considered in consultation with public health authorities. Laboratory test results should always be considered in the context of clinical observations and epidemiological data in making a final diagnosis and patient management decisions. Please review the Fact Sheets and FDA authorized labeling available for health care providers and patients using the following websites: https://www.Lang Ma.Kayentis/home/Covid-19/HCP/NAAT/fact-sheet2 https://www.Lang Ma.Kayentis/home/Covid-19/Patients/NAAT/ fact-sheet2 This test has been authorized by the FDA under an Emergency Use Authorization (EUA) for use by authorized laboratories. Due to the current public health emergency, [facility] is receiving a high volume of samples from a wide variety of swabs and media for COVID-19 testing. In order to serve patients during this public health crisis, samples from appropriate clinical sources are being tested. Negative test results derived from specimens received in non-commercially manufactured viral collection and transport media, or in media and sample collection kits not yet authorized by FDA for COVID-19 testing should be cautiously evaluated and the patient potentially subjected to extra precautions such as additional clinical monitoring, including collection of an additional specimen. Methodology: Nucleic Acid Amplification Test (NAAT) includes RT-PCR or TMA Additional information about COVID-19 can be found at the [facility] website: www.Metooo.Kayentis/Covid19. Test performed at [facility] [address] [address] Director: ODETTE ABRACA DO,MPH FIRST TEST YES 02/18/2020 1:27 PM [facility] EMPLOYED IN HEALTHCARE NO 02/18/2020 1:27 PM [facility] SYMPTOMATIC DEFINED BY CDC NO 02/18/2020 1:27 PM [facility] DATE OF SYMPTOM ONSET UNKNOWN 02/18/2020 1:37 PM [facility] HOSPITALIZATION STATUS NO 02/18/2020 1:27 PM FOIL OPERATOR [facility] PATIENT IN ICU NO 02/18/2020 1:27 PM FOIL OPERATOR [facility] RESIDENT OF [facility] NO 02/18/2020 1:27 PM FOIL OPERATOR [facility] UNKNOWN 02/18/2020 1:37 PM FOIL OPERATOR [facility] PATIENT'S RACE WHITE OR 02/18/2020 1:27 PM FOIL OPERATOR [facility] ETHNICITY NONHISPANIC 02/18/2020 1:27 PM FOIL OPERATOR [facility] SOURCE (QST) NASOPHARYNGEAL SWAB 02/18/2020 1:27 PM FOIL OPERATOR [facility] NASOPHARYNGEAL SWAB / Unknown 02/18/2020 10:45 AM FOIL OPERATOR us Jeremie Ratliff MD MICROBIOLOGY - GENERAL ORDERABL ES Final Result Performing Organization Address City/State/[facility] Co de Phone Number [facility] [address] [place] [address], [place] [address], documented in this encounter Visit Diagnoses Diagnosis Preoperative testing- Primary Preoperative examination, unspecified documented in this encounter Additional Health Concerns Infection Onset Date Last Indicated Resolved Time COVID-19 Rule Out 03/07/2020 03/07/2020 03/08/2020 3:36 PM FOIL OPERATOR documented as of this encounter Care Teams Recording Studio Internship Relationship Specialty Start Date End Date Darvin Riggins MD [address] [address] PCP - General FAMILY PRACTICE 01/02/20 documented as of this encounter
[2024-07-15 12:51] LABS: Kit Draw Collected
== END 2024-07-15 08:12 | disposition home or self-care (01) ==
LOC: ANHGOSHLAB 08:12
PROVIDERS: PCP Family Medicine; Visit Provider Nurse Practitioner Adult Health
DX: E11.65 Type 2 diabetes mellitus with hyperglycemia (principal); E66.01 Morbid (severe) obesity due to excess calories; I10 Essential (primary) hypertension; E53.8 Deficiency of other specified B group vitamins; E03.9 Hypothyroidism, unspecified; E61.1 Iron deficiency; E11.9 Type 2 diabetes mellitus without complications; I95.9 Hypotension, unspecified; Z12.5 Encounter for screening for malignant neoplasm of prostate
CPT/HCPCS: 36415